=== PATIENT | female | born 2000 | race African-American/Black ===

== ENCOUNTER 2019-07-18 12:59 | Inpatient (IN) ==
[2019-07-18 14:06] LABS: Appearance Urine Clear (Clear); Bilirubin Urine Negative (Negative); Blood Urine Negative (Negative); Color Urine Dark Yellow; Epithelial Cell Urine Auto >30 /lpf (0-5); Glucose Urine UA Negative (Negative); Ketones Urine 2+ (Negative); Leukocyte Esterase Urine Negative (Negative); Nitrite Urine Negative (Negative); Protein Urine 3+ (Negative); Specific Gravity Urine 1.028 (1.000-1.030); Urobilinogen Urine Negative (Negative); pH Urine 5.5 (4.5-7.5)
[2019-07-18 14:44] LABS: Bacteria Urine Automated Negative (Negative); Cast Urine Automated 0 /lpf (0-5); Mucus Urine Present (None Prsent); RBC Urine Automated 0-4 /hpf (0-4)
[2019-07-18 14:47] LABS: Amphetamines+Metham, Urine Neg (Neg); Barbiturates, Urine Neg (Neg); Benzodiazepine, Urine Neg (Neg); Cocaine, Urine Neg (Neg); MDMA (Ecstacy), Urine Neg (Neg); Methadone, Urine Neg (Neg); Opiate, Urine Neg (Neg); Phencyclidine, Urine Neg (Neg)
[2019-07-18 15:09] LABS: Acetaminophen < 2 ug/ml (10-30); Albumin Globulin Ratio 0.9 (0.9-2); Albumin Level 3.6 gm/dl (3.4-5.0); BUN Creatinine Ratio 10.3 (10-20); Bilirubin,Total 0.5 mg/dl (0.2-1); Calcium 9.3 mg/dl (8.5-10.1); Creatinine Clr Calc Pharmacy 110.9 ml/min; Est GFR (African American) 128.8; Est GFR (Non-African American) 111.1; Globulin 4.1 gm/dl (2.5-4.0); Thyroid Stimulating Hormone 0.42 uIu/ml (0.300-4.500); Total Protein 7.7 gm/dl (6.4-8.2)
[2019-07-18 15:10] LABS: Salicylate < 1.7 mg/dl (2.8-20)
[2019-07-18 16:05] LABS: Basophils # (auto) 0.02 K/uL (0-0.2); Basophils % (auto) 0.3 %; Eosinophils # (auto) 0.07 K/uL (0-0.5); Eosinophils % (auto) 1.1 %; Hematocrit (blood only) 36.6 % (37-47); Hemoglobin 12.1 g/dL (12.0-16.0); Immature Granulocytes # (auto) 0.01 K/uL (0.00-0.02); Immature Granulocytes % (auto) 0.2 %; Lymphocytes # (auto) 1.79 K/uL (1.2-3.4); Lymphocytes % (auto) 28.7 %; Mean Corpuscular Hemoglobin 27.4 pg (25-34); Mean Corpuscular Hgb Conc 33.1 g/dL (32-36); Mean Corpuscular Volume 82.8 fL (80-100); Mean Platelet Volume 10.9 fL (7.4-10.4); Monocytes # (auto) 0.38 K/uL (0.11-0.59); Monocytes % (auto) 6.1 %; Neutrophils # (auto) 3.97 K/uL (1.4-6.5); Neutrophils % (auto) 63.6 %; Platelet Count 251 K/uL (130-400); RDW Coefficient of Variation 13.4 % (11.5-14.5); RDW Standard Deviation 40.7 fL (36.4-46.3); Red Blood Count 4.42 M/uL (4.2-5.4); White Blood Count 6.24 K/uL (4.8-10.8)
--- NOTE | 2019-07-18 16:18 | Emergency Department Note ---
Entered by Loreta Perae acting as a scribe for Elroy Bradley MD History of Present Illness General Chief complaint: Mental Health Evaluation Stated complaint: SUICIDAL THOUGHTS Time Seen by Provider: 07/18/19 13:22 Source: patient History of Present Illness Onset (ago): day(s) 4 Location: head Pain Consistency: + other (worsening) Quality: + other (mental health) Relieved By: not by other (coping skills) Associated symptoms: + denies other symptoms (recent self-harm, abdominal pain, leg swelling, HI, feeling anxious, having hallucinations) and + other (SI); no nausea/vomiting The patient is a 19 year old female w/ PMHx depression who presents to the ED for a mental health evaluation. The patient states that she has had depression since 8th grade. She states that over the last few weeks her depression has become worse. She states that 4 days ago she started having suicidal ideations. She reports that she has been having thoughts about overdosing on NyQuil or using scissors to kill herself. She notes that she has never tried committing suicide in the past, but she has harmed herself in the past. She notes that she last harmed herself 2 years ago. The patient states that yesterday she ended a friendship and states that she has been having boy problems. She states that she believes the stress from this plus the stress from school is why she is having these thoughts. The patient notes that she used to follow with a counselor, but no longer does. She notes that she did see [facility] today and they sent her here. She notes that she has been trying coping skills, but they are not working. She notes that her menstrual period is supposed to start tomorrow. The patient states that she was drinking, smoking marijuana, and doing LSD over the weekend. The patient denies being on any medications, ever being inpatient, using tobacco, having access to guns/weapons, abdominal pain, nausea, vomiting, leg swelling, HI, feeling anxious, and having hallucinations. Home Medications Home Medications Medication Instructions Recorded Confirmed Type No Known Home Medications 07/18/19 07/18/19 History Allergies Allergy/AdvReac Type Severity Reaction Status Date / Time No Known Allergies Allergy Unverified 07/18/19 14:35 Past Med/Surg History Medical History Depression Family History Other No significant family history Social History marital status: Single Current Living Situation: Other Current Living Situation Comment: Roommate current occupational status: student Feels Safe at Home: Yes Smoking Status: Never smoker Hx Alcohol Use: Yes Hx Substance Use: Yes Review of Systems See HPI for pertinent positives & negatives. and A total of 10 systems reviewed and were otherwise negative Physical Exam Vital Signs Vital Signs - 24 hr 07/18/19 13:12 Temperature 37.1 C Temperature Source Oral Sepsis Recent Fever Within 48 Hours No Sepsis New/Unexplained Change in Mental Status No Sepsis Action Taken by Nursing No Action Required Pulse Rate 61 Respiratory Rate 20 Blood Pressure 133/81 Blood Pressure Mean 98 Pulse Oximetry 97 Oxygen Delivery Method Room Air GENERAL: Well appearing, well nourished, NAD, non-toxic. Wearing glasses. EYE EXAM: Normal conjunctiva. PERRL, no anisocoria and EOM's grossly intact w/o pain. OROPHARYNX: Moist mucous membranes. Grossly normal dentition. NECK: Supple, no nuchal rigidity, no adenopathy, non-tender. No signs of meningismus. LUNGS: Clear to auscultation. Normal chest wall mechanics. HEART: NSR, no MRG. ABDOMEN: Abdomen soft, non-tender, normo-active bowel sounds, no masses, no rebound or guarding. BACK: No CVA TTP. SKIN: No rashes and no bruising. UPPER EXTREMITIES: Upper extremities are grossly normal. LOWER EXTREMITIES: No pitting edema. No calf pain. NEURO EXAM: A&O x3, cranial nerves II-XII grossly intact, normal speech, moves all 4 extremities on command w/o issue. PSYCH: Positive SI. Negative HI. Negative AVH. Course 1344: Past medical records reviewed. The patient was evaluated in room A5. A complete history and physical exam was performed. 1607: The patient was medically cleared at this time. 1725: The patient was accepted to [address] [place] [address] at this time. Medical Decision Making Differential Diagnosis Differential diagnoses considered include mood disorder, infection, hypoglycemia, electrolyte abnormalities, cardiac sources, intracerebral event, toxicologic, neurologic, as well as others. Medical Records Attestation: I reviewed the patient's medical records. Home Medications Current Medication List: was personally reviewed by me Laboratory Data Attestation: I reviewed the patient's lab results. Result diagrams: 07/18/19 15:35 07/18/19 14:22 Lab Results 07/18/19 07/18/19 07/18/19 Range/Units 13:45 13:45 14:22 WBC Cancelled RBC Cancelled Hgb Cancelled Hct Cancelled MCV Cancelled MCH Cancelled MCHC Cancelled RDW Std Deviation Cancelled RDW Coeff of Rafi Cancelled Plt Count Cancelled MPV Cancelled Immature Gran % (Auto) Cancelled Neut % (Auto) Cancelled Lymph % (Auto) Cancelled Montgomery % (Auto) Cancelled Eos % (Auto) Cancelled Baso % (Auto) Cancelled Immature Gran # (Auto) Cancelled Neut # (Auto) Cancelled Lymph # (Auto) Cancelled Montgomery # (Auto) Cancelled Eos # (Auto) Cancelled Baso # (Auto) Cancelled Absolute Nucleated RBC Cancelled Nucleated RBC % (auto) Cancelled Neutrophils % (Manual) Cancelled Band Neutrophils % Cancelled Lymphocytes % (Manual) Cancelled Prolymphocyte % Cancelled Reactive Lymphs % (Man) Cancelled Monocytes % (Manual) Cancelled Eosinophils % (Manual) Cancelled Basophils % (Manual) Cancelled Metamyelocytes % (Man) Cancelled Myelocytes % (Man) Cancelled Promyelocytes % (Man) Cancelled Blast Cells % (Manual) Cancelled Plasma Cell % (Manual) Cancelled Other Cells % Cancelled Nucleated RBC % Cancelled Neutrophils # (Manual) Cancelled Band Neutrophils # Cancelled Total Absolute Neuts Cancelled Lymphocytes # (Manual) Cancelled Prolymphocyte # Cancelled Reactive Lymphs # Cancelled Total Abs Lymphocytes Cancelled Monocytes # (Manual) Cancelled Eosinophils # (Manual) Cancelled Basophils # (Manual) Cancelled Metamyelocytes # (Man) Cancelled Myelocytes # (Manual) Cancelled Promyelocytes # (Man) Cancelled Blast Cells # (Man) Cancelled Plasma Cell # (Manual) Cancelled Other Cells # Cancelled Nucleated RBCs # (Man) Cancelled Hypersegmented Neuts Cancelled Hyposegmented Neuts Cancelled Hypogranular Neuts Cancelled Large Granular Lymphs Cancelled # Lrg Granular Lymphs Cancelled Hairy Cells Cancelled Smudge Cells Cancelled Toxic Granulation Cancelled Toxic Vacuolation Cancelled Dohle Bodies Cancelled Dafne Rods Cancelled Platelet Estimate Cancelled Hypogranular Platelets Cancelled Clumped Platelets Cancelled Giant Platelets Cancelled Platelet Satelliting Cancelled RBC Morphology Cancelled Polychromasia Cancelled Hypochromasia Cancelled Poikilocytosis Cancelled Basophilic Stippling Cancelled Anisocytosis Cancelled Microcytosis Cancelled Macrocytosis Cancelled Spherocytes Cancelled Pappenheimer Bodies Cancelled Sickle Cells Cancelled Target Cells Cancelled Tear Drop Cells Cancelled Ovalocytes Cancelled Stomatocytes Cancelled Maurer-Greenfield Bodies Cancelled Echinocytes Cancelled Acanthocytes (Spur) Cancelled Rouleaux Cancelled RBC Agglutinates Cancelled Schistocytes Cancelled RBC Morph Comment Cancelled Sezary Cell Cancelled Sodium (136-145) mmol/L Potassium (3.5-5.1) mmol/L Chloride (98-107) mmol/L Carbon Dioxide (21-32) mmol/L Anion Gap (3-11) BUN (7-18) mg/dl Creatinine (0.6-1.2) mg/dl Est Cr Clr Drug Dosing ml/min Est GFR ( Amer) Est GFR (Non-Af Amer) BUN/Creatinine Ratio (10-20) Glucose (70-99) mg/dl Calcium (8.5-10.1) mg/dl Total Bilirubin (0.2-1) mg/dl AST (15-37) U/L ALT (12-78) U/L Alkaline Phosphatase (45-117) U/L Total Protein (6.4-8.2) gm/dl Albumin (3.4-5.0) gm/dl Globulin (2.5-4.0) gm/dl Albumin/Globulin Ratio (0.9-2) TSH (0.300-4.500) uIu/ml Urine Color Dark Yellow Urine Appearance Clear (Clear) Urine pH 5.5 (4.5-7.5) Ur Specific Odell 1.028 (1.000-1.030) Urine Protein 3+ H (Negative) Urine Glucose (UA) Negative (Negative) Urine Ketones 2+ H (Negative) Urine Blood Negative (Negative) Urine Nitrite Negative (Negative) Urine Bilirubin Negative (Negative) Urine Urobilinogen Negative (Negative) Ur Leukocyte Esterase Negative (Negative) Urine WBC (Auto) 1-5 (0-5) /hpf Urine RBC (Auto) 0-4 (0-4) /hpf U Hyaline Cast (Auto) 0 (0-5) /lpf U Epithel Cells (Auto) >30 H (0-5) /lpf Urine Bacteria (Auto) Negative (Negative) Ur Renal Epithelial Cell Not Reportable Urine Mucus Present A (None Prsent) POC Ur Test (NEG) Salicylates (2.8-20) mg/dl Urine Opiates Screen Neg (Neg) Ur Methadone, Qual Neg (Neg) Acetaminophen (10-30) ug/ml Urine Barbiturates Neg (Neg) Ur Phencyclidine (PCP) Neg (Neg) U Amphetamin/Meth Scrn Neg (Neg) MDMA (Ecstasy) Screen Neg (Neg) U Benzodiazepines Scrn Neg (Neg) Ur Cocaine Metabolite Neg (Neg) U Marijuana (THC) Screen Pos H (Neg) Ethyl Alcohol mg/dL (0-3) mg/dl 07/18/19 07/18/19 07/18/19 Range/Units 14:22 14:22 14:22 WBC RBC Hgb Hct MCV MCH MCHC RDW Std Deviation RDW Coeff of Rafi Plt Count MPV Immature Gran % (Auto) Neut % (Auto) Lymph % (Auto) Montgomery % (Auto) Eos % (Auto) Baso % (Auto) Immature Gran # (Auto) Neut # (Auto) Lymph # (Auto) Montgomery # (Auto) Eos # (Auto) Baso # (Auto) Absolute Nucleated RBC Nucleated RBC % (auto) Neutrophils % (Manual) Band Neutrophils % Lymphocytes % (Manual) Prolymphocyte % Reactive Lymphs % (Man) Monocytes % (Manual) Eosinophils % (Manual) Basophils % (Manual) Metamyelocytes % (Man) Myelocytes % (Man) Promyelocytes % (Man) Blast Cells % (Manual) Plasma Cell % (Manual) Other Cells % Nucleated RBC % Neutrophils # (Manual) Band Neutrophils # Total Absolute Neuts Lymphocytes # (Manual) Prolymphocyte # Reactive Lymphs # Total Abs Lymphocytes Monocytes # (Manual) Eosinophils # (Manual) Basophils # (Manual) Metamyelocytes # (Man) Myelocytes # (Manual) Promyelocytes # (Man) Blast Cells # (Man) Plasma Cell # (Manual) Other Cells # Nucleated RBCs # (Man) Hypersegmented Neuts Hyposegmented Neuts Hypogranular Neuts Large Granular Lymphs # Lrg Granular Lymphs Hairy Cells Smudge Cells Toxic Granulation Toxic Vacuolation Dohle Bodies Dafne Rods Platelet Estimate Hypogranular Platelets Clumped Platelets Giant Platelets Platelet Satelliting RBC Morphology Polychromasia Hypochromasia Poikilocytosis Basophilic Stippling Anisocytosis Microcytosis Macrocytosis Spherocytes Pappenheimer Bodies Sickle Cells Target Cells Tear Drop Cells Ovalocytes Stomatocytes Maurer-Greenfield Bodies Echinocytes Acanthocytes (Spur) Rouleaux RBC Agglutinates Schistocytes RBC Morph Comment Sezary Cell Sodium 139 (136-145) mmol/L Potassium 4.0 (3.5-5.1) mmol/L Chloride 109 H (98-107) mmol/L Carbon Dioxide 23 (21-32) mmol/L Anion Gap 7.0 (3-11) BUN 8 (7-18) mg/dl Creatinine 0.77 (0.6-1.2) mg/dl Est Cr Clr Drug Dosing 110.9 ml/min Est GFR ( Amer) 128.8 Est GFR (Non-Af Amer) 111.1 BUN/Creatinine Ratio 10.3 (10-20) Glucose 81 (70-99) mg/dl Calcium 9.3 (8.5-10.1) mg/dl Total Bilirubin 0.5 (0.2-1) mg/dl AST 18 (15-37) U/L ALT 12 (12-78) U/L Alkaline Phosphatase 44 L (45-117) U/L Total Protein 7.7 (6.4-8.2) gm/dl Albumin 3.6 (3.4-5.0) gm/dl Globulin 4.1 H (2.5-4.0) gm/dl Albumin/Globulin Ratio 0.9 (0.9-2) TSH 0.420 (0.300-4.500) uIu/ml Urine Color Urine Appearance (Clear) Urine pH (4.5-7.5) Ur Specific Odell (1.000-1.030) Urine Protein (Negative) Urine Glucose (UA) (Negative) Urine Ketones (Negative) Urine Blood (Negative) Urine Nitrite (Negative) Urine Bilirubin (Negative) Urine Urobilinogen (Negative) Ur Leukocyte Esterase (Negative) Urine WBC (Auto) (0-5) /hpf Urine RBC (Auto) (0-4) /hpf U Hyaline Cast (Auto) (0-5) /lpf U Epithel Cells (Auto) (0-5) /lpf Urine Bacteria (Auto) (Negative) Ur Renal Epithelial Cell Urine Mucus (None Prsent) POC Ur Test (NEG) Salicylates < 1.7 L (2.8-20) mg/dl Urine Opiates Screen (Neg) Ur Methadone, Qual (Neg) Acetaminophen < 2 L (10-30) ug/ml Urine Barbiturates (Neg) Ur Phencyclidine (PCP) (Neg) U Amphetamin/Meth Scrn (Neg) MDMA (Ecstasy) Screen (Neg) U Benzodiazepines Scrn (Neg) Ur Cocaine Metabolite (Neg) U Marijuana (THC) Screen (Neg) Ethyl Alcohol mg/dL < 3.0 (0-3) mg/dl 07/18/19 07/18/19 Range/Units 15:35 15:43 WBC 6.24 RBC 4.42 Hgb 12.1 Hct 36.6 L MCV 82.8 MCH 27.4 MCHC 33.1 RDW Std Deviation 40.7 RDW Coeff of Rafi 13.4 Plt Count 251 MPV 10.9 H Immature Gran % (Auto) 0.2 Neut % (Auto) 63.6 Lymph % (Auto) 28.7 Montgomery % (Auto) 6.1 Eos % (Auto) 1.1 Baso % (Auto) 0.3 Immature Gran # (Auto) 0.01 Neut # (Auto) 3.97 Lymph # (Auto) 1.79 Montgomery # (Auto) 0.38 Eos # (Auto) 0.07 Baso # (Auto) 0.02 Absolute Nucleated RBC Nucleated RBC % (auto) Neutrophils % (Manual) Band Neutrophils % Lymphocytes % (Manual) Prolymphocyte % Reactive Lymphs % (Man) Monocytes % (Manual) Eosinophils % (Manual) Basophils % (Manual) Metamyelocytes % (Man) Myelocytes % (Man) Promyelocytes % (Man) Blast Cells % (Manual) Plasma Cell % (Manual) Other Cells % Nucleated RBC % Neutrophils # (Manual) Band Neutrophils # Total Absolute Neuts Lymphocytes # (Manual) Prolymphocyte # Reactive Lymphs # Total Abs Lymphocytes Monocytes # (Manual) Eosinophils # (Manual) Basophils # (Manual) Metamyelocytes # (Man) Myelocytes # (Manual) Promyelocytes # (Man) Blast Cells # (Man) Plasma Cell # (Manual) Other Cells # Nucleated RBCs # (Man) Hypersegmented Neuts Hyposegmented Neuts Hypogranular Neuts Large Granular Lymphs # Lrg Granular Lymphs Hairy Cells Smudge Cells Toxic Granulation Toxic Vacuolation Dohle Bodies Dafne Rods Platelet Estimate Hypogranular Platelets Clumped Platelets Giant Platelets Platelet Satelliting RBC Morphology Polychromasia Hypochromasia Poikilocytosis Basophilic Stippling Anisocytosis Microcytosis Macrocytosis Spherocytes Pappenheimer Bodies Sickle Cells Target Cells Tear Drop Cells Ovalocytes Stomatocytes Maurer-Greenfield Bodies Echinocytes Acanthocytes (Spur) Rouleaux RBC Agglutinates Schistocytes RBC Morph Comment Sezary Cell Sodium (136-145) mmol/L Potassium (3.5-5.1) mmol/L Chloride (98-107) mmol/L Carbon Dioxide (21-32) mmol/L Anion Gap (3-11) BUN (7-18) mg/dl Creatinine (0.6-1.2) mg/dl Est Cr Clr Drug Dosing ml/min Est GFR ( Amer) Est GFR (Non-Af Amer) BUN/Creatinine Ratio (10-20) Glucose (70-99) mg/dl Calcium (8.5-10.1) mg/dl Total Bilirubin (0.2-1) mg/dl AST (15-37) U/L ALT (12-78) U/L Alkaline Phosphatase (45-117) U/L Total Protein (6.4-8.2) gm/dl Albumin (3.4-5.0) gm/dl Globulin (2.5-4.0) gm/dl Albumin/Globulin Ratio (0.9-2) TSH (0.300-4.500) uIu/ml Urine Color Urine Appearance (Clear) Urine pH (4.5-7.5) Ur Specific Odell (1.000-1.030) Urine Protein (Negative) Urine Glucose (UA) (Negative) Urine Ketones (Negative) Urine Blood (Negative) Urine Nitrite (Negative) Urine Bilirubin (Negative) Urine Urobilinogen (Negative) Ur Leukocyte Esterase (Negative) Urine WBC (Auto) (0-5) /hpf Urine RBC (Auto) (0-4) /hpf U Hyaline Cast (Auto) (0-5) /lpf U Epithel Cells (Auto) (0-5) /lpf Urine Bacteria (Auto) (Negative) Ur Renal Epithelial Cell Urine Mucus (None Prsent) POC Ur Test NEG (NEG) Salicylates (2.8-20) mg/dl Urine Opiates Screen (Neg) Ur Methadone, Qual (Neg) Acetaminophen (10-30) ug/ml Urine Barbiturates (Neg) Ur Phencyclidine (PCP) (Neg) U Amphetamin/Meth Scrn (Neg) MDMA (Ecstasy) Screen (Neg) U Benzodiazepines Scrn (Neg) Ur Cocaine Metabolite (Neg) U Marijuana (THC) Screen (Neg) Ethyl Alcohol mg/dL (0-3) mg/dl Blood Pressure Blood Pressure Findings: Elevated blood pressure Blood Pressure Disposition: Referred to patients primary care provider MDM Narrative The patient is a 19 year old female w/ PMHx depression who presents to the ED for a mental health evaluation. Patient was seen and evaluated the bedside. The patient has had increasing depressive thoughts with suicidal ideation with plan. Patient denies any HI or AVH. Patient has tried to utilize coping skills and was seen and evaluated by Referred Here Today. The Patient Is Otherwise Well-Appearing at the Bedside. The Patient Did a Blood Work Completed. Patient Was Seen Medically Cleared Evaluated by Psych and Referred Upstairs. The Patient Was a Voluntary 201 and Admitted to 3 S. Impression & Plan Suicidal ideations, Depressed mood, Drug abuse Discharge Plan Visit Data Chief Complaint: Mental Health Evaluation Stated Complaint: SUICIDAL THOUGHTS ED Provider: Elroy Bradley Discharge Problem: Suicidal ideations, Depressed mood, Drug abuse Patient Disposition: Transfer Behavioral Health Fac Forms Stand Alone Forms: My [facility] Prescriptions Prescriptions: No Action No Known Home Medications RF: 0 Referrals Referrals: [place],[facility] [Primary Care Provider] - The curtisibe's documentation has been prepared under my direction and personally reviewed by me in its entirety. I confirm that the note above accurately reflects all work, treatment, procedures, and medical decision making performed by me.
[2019-07-18] MEDS ORDERED: ALUMINUM/MAGNESIUM SUSP 30 ML UDC PO PRN (16:58)
[2019-07-18] MEDS ORDERED: SODIUM CHLORIDE 0.65% NA SOLN 45 ML (OCEAN) PRN (16:58)
[2019-07-18] MEDS ORDERED: MAGNESIUM HYDROXIDE SUSP 30 ML UDC PO PRN (16:58)
[2019-07-18] MEDS ORDERED: BISMUTH SUBSALICYLATE PER ML OMNICELL CHARGE PO PRN (16:58)
[2019-07-18 19:30] VITALS: O2SAT 99
[2019-07-18] MEDS ORDERED: INFLUENZA VIRUS QUAD VACCINE 0.5 ML SYR IM ONE (21:45)
[2019-07-18] MEDS ORDERED: INFLUENZA ADMINISTRATION CHARGE ONE (21:45)
--- NOTE | 2019-07-19 10:55 | History & Physical ---
Date of Service July 19, 2019 Impression / Recommendations Impression 19-year-old female admitted voluntarily for inpatient psychiatric treatment after presenting to the ED upon referral from [facility]. Patient endorses worsening mood, more significantly over the past 2 weeks. Suicidal ideation has been persistent, and more severe than in the past. Suicidality developed into thoughts to harm herself with scissors or overdose on DayQuil. Patient verbalized concerns at [facility], and requested inpatient treatment. She was directed to the ED and subsequently admitted for treatment. Patient seems to demonstrate good insight and verbalizes having multiple outpatient supports. She indicates a desire for outpatient psychiatric providers, and states she is not able to contract for safety outside of the hospital due to persistent SI. Patient is agreeable to referral for a therapist locally, she is also agreeable to discussion about antidepressant medications. Overview of SSRIs was discussed with the patient, who verbalized concern related to possible weight gain. Risks, benefits, and potential side effects of fluoxetine were discussed with the patient, who verbalized understanding and is agreeable with plan to initiate the medication. Patient agreed to start fluoxetine 20 mg today, scheduled every morning thereafter. Will titrate as tolerated/indicated. Patient will be encouraged to participate in group and recreational programming while on the unit. She will be asked to involve outpatient supports in a family meeting to discuss safety and aftercare planning prior to discharge. At this time, patient remains at acute risk of harm to self as she continues to verbalize suicidal ideation and inability to contract for safety outside of the hospital. Inpatient psychiatric treatment is medically necessary at this time. Dr. Aisha Burton was directly involved in review and discussion of the patient's case and participated in medical decision making regarding treatment recommendations. (1) Suicidal ideations: 07/19 - Admitted to a locked inpatient behavioral health unit, on q15 minute safety checks - Encourage medication initiation/adjustments as indicated - Encourage participation in group and recreational therapies - Gather collateral information from outpatient providers - Suggest family meeting to involve outpatient supports in safety planning - Arrange appropriate aftercare (2) Depressed mood: 07/19 - Initiate fluoxetine 20mg qAM, starting first dose today - risks, benefits, and potential side effects were discussed and patient verbalized understanding - Encourage participation in group and recreational therapy - Suggest involvement of outpatient supports in a family meeting - Obtain collateral information from family and supports - Refer for outpatient psychiatric services (3) Substance use disorder: 07/19 - Pt admits to alcohol use to the point of intoxication 1-2 days per week; admits to intermittent but consistent use of cannabis as well as occasional use of LSD and mushrooms - Pt does not at this time feel that her substance use is negatively affecting her mood or ability to function/complete necessary daily tasks - She does not feel this topic is a primary focus of her treatment, though we will certainly continue to educate her and encourage sobriety - Brief intervention was offered and accepted Intervention was greater than 5 min in length. Brief interventions include: 1. Assess Readiness to Quit, 2. Advise: Help Patient to Reduce or Abstain from Alcohol and other substances, 3. Agree: Set Specific, Feasible Goals, 4. Assist: Anticipate barriers, Problem-Solving Solutions. Social work to 5. Arrange: Referrals to appropriate treatment. Summary of intervention: The patient is in precontemplation stage with regards to transtheoretical model of change. The patient is advised to decrease alcohol consumption and substance use due to depressant effects and risk of interactions with prescription medications. The patient was advised of recommendations for abstinence from alcohol and other abusable substances and to attend substance abuse treatment at discharge, and will be provided with recovery materials to continue to education self on how to cope with their condition without drinking or utilizing other substances. (4) Depression: (5) Anxiety: Inventory Assets Strengths: Willingness for treatment, multiple outpatient supports, good insight related to need for treatment Needs: Medication initiation to target depressive symptoms, development of healthy and effective coping strategies, referrals for outpatient psychiatric providers Risk Factors Assessment Male: No : No Do You Have Access To A Gun?: No Health Problems: No Mental Health Diagnoses: No (History has been "situational depression") Substance Use Disorders: Yes Previous Attempt: No Family History of Suicide: No Previous Psychiatric Hospitalization: No Smoker: No Protective Factors Assessment Voodoo Beliefs: Yes : No Responsible for Young Children: No Employed: Yes ([employer]) Stable Relationships: No Supportive Family: Yes Psychiatric History Identifying Data MIRZA MARIE is a 19-year-old F who currently lives in [place] with a roommate. Pt has limited prior psychiatric history, only reporting brief ep isodes of engagement in therapy. She was admitted on 07/18/19 16:59 on a 201 voluntary commitment for worsening depression and suicidal ideation with consideration to overdose on DayQuil or use scissors to harm herself. Information is gathered from the ED documentation and the patient herself, the combination of which is considered to be reliable. Chief Complaint "For the past 2 weeks I have been really depressed. I had a history of depression, so it was not shocking to me. But I got suicidal, and the urge and consistency of the thoughts just kept getting stronger." History of Present Illness 19-year-old -[place] female admitted voluntarily for inpatient psychiatric treatment after presenting to the ED upon referral from [facility]. Patient reported worsening mood over the last 2 weeks, accompanied by suicidal ideation with consideration to harm herself with scissors or overdose on DayQuil. Patient reportedly went to [facility] desiring inpatient psychiatric treatment. She was referred to the emergency room, and subsequently admitted to our unit for inpatient treatment. Attempt was made to safety plan from the ED, patient was unable to contract for safety outside of the inpatient setting due to continued suicidal ideation. Patient is cooperative with psychiatric evaluation, stating that she has been "decent", then admitting "for the past 2 weeks I have been really depressed." Patient states that suicidality began on 07/14/19, and worsened after the patient "went out Thursday night with a friend, she just left me. That friendship is now ended." Patient states that the suicidal ideation worsened over the course of the weekend, with the "urge and consistency becoming stronger." Patient shares with this provider "I told my friends however is feeling, I also told him if the thoughts did not go away by Thursday I was going to get help." Patient states this is exactly what happened, which is why she reached out to [facility] for assistance with inpatient psychiatric treatment. Patient reports recent stressors of ending of a friendship, "boy issues", and some academic st ress. Patient states that while her grades are decent overall, she is mildly struggling with "the last class I need to declare my major." Patient admits that while any of these stressors and isolation may not have contributed to suicidality, she is struggling with handling the combination of the stressors. Patient states that she has struggled with passive suicidality in the past, stating these thoughts were "'I want to ', but not with a solid plan." Patient believes last time she experienced passive suicidality was 2 years ago as a senior in high school. Patient admits that she is "confused" as "I have more friends and better family support now, but I feel like that is not helping to make me feel better faster." Patient does believe that she not sought out treatment, it may have been likely she would have acted on her suicidal ideation "by the end of the week." She denies intent to harm herself at this time, which is why she desired treatment. Patient endorses depressive symptoms of low mood, increased isolative behavior, increased desire to sleep to escape stress, difficulty falling and staying asleep, decreased appetite 10 pound semi-intentional weight loss, occasional thoughts of hopelessness, scattered thoughts, and suicidal ideation. Patient admits that in the past she had handled the symptoms with self-injurious behavior via cutting. She states she now resorts to "giving myself tattoos" when healthier coping strategies are less effective. Patient does admit to anxiety, which is most often situational in nature. She admits to tendency to isolate, and experiences physical symptoms of diaphoresis and tachycardia. Patient does admit to remote history of panic attacks, not able to recall when the last night had occurred. She does admit to crying spells, tremor, shortness of breath, negative thoughts, and this daughter when she is experiencing a panic attack. Patient admits to exacerbation of depressive and anxiety symptoms from 7th to 10th grade, as well as the end of her senior year of high school. She states she has never received medications for her mood or anxiety in the past. She has had intermittent counseling for specific situations. 1 of the situations includes restrictive eating behaviors which patient engaged in from seventh to ninth grade. Patient states that she continues to have thoughts to restrict, but has no desire to act on them. She states "to be honest I was not that great at it." Patient admits willingness for trial of antidepressant medications, and is requesting a referral for an outpatient therapist. Patient states she does not feel safe returning home at this time, as suicidal ideation is ongoing. Pt denies SI, HI, A/V hallucinations, paranoia, yessi/hypomania, other symptoms more suggestive of a bipolar presentation, OCD, PTSD, and other specific psychiatric symptoms. Past Psychiatric History Previous Psych History: Intermittent engagement in counseling, generally targeted towards a specific situational stressor. Current Psychiatric Diagnosis: MDD Outpatient Services: None presently Previous Psych Admissions: None Do You Have Access To A Gun?: No History of Previous Suicide Attempt: No Describe Attempts in the Past: Denies Past Medication Trials: Denies Past Head Trauma/Neuro History History of Concussion/Seizure: No Allergies Allergy/AdvReac Type Severity Reaction Status Date / Time No Known Allergies Allergy Unverified 07/18/19 14:35 Home Medications Home Medications Medication Instructions Recorded Confirmed Type No Known Home Medications 07/18/19 07/18/19 History Family History Family History of: Depression Family Mental Health History Comment: Mom Alcohol History Hx of Alcohol Use Over the Past 12 Months: Yes (Mostly on weekends to get drunk, approx 8 drinks) AUDIT Total Score: 14 Patient admits to consuming alcohol 1-2 days/week. At a maximum, patient states she consumes 8 alcoholic beverages, generally mixed drinks or shots. Patient does admit to intent to drink to the point of intoxication; however, does not routinely black out. Patient does not see her current alcohol use as an issue. Smoking Use Have You Smoked or Used Tobacco Products in the Last 30 Days: No Smoking Status: Never smoker Substance History Hx of Prescription Med Misuse Over the Past 12 Months: No Hx of Over the Counter Med Misuse Over the Past 12 Months: No Hx of Inhalent Misuse Over the Past 12 Months: No Hx of Organic Substance Use Over the Past 12 Months: Yes (Occasional marijuana) Hx of Illegal Substances/Street Drug Use Over Past 12 Months: Yes (Rarely uses LSD, last use over the weekend) Problems as a Result of Past Substance Use: None Identified Patient previously smoked marijuana on a daily basis. Has recently cut down to "3 times a week." Patient admits to use of LSD or mushrooms "1 or the other about every 3 months." Patient states she has not had any formal drug or alcohol abuse treatment. She does not perceive her current substance use as a concern. Personal History Living Arrangements: Dorm (With a roommate) Born In: [place] Childhood: Patient states she was born in [place] but moved frequently. She was raised by both parents. Patient has an older sister, who is currently living with her parents near [place], [place]. Patient states she has lived in [place], [place], [place], in [place]. She states they often traveled as her parents pursued various degrees and job opportunities. 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 ) Marital Status: Single Number Of Children: None Beliefs That Will Affect Care: Voodoo (Identifies as Caodaism) Current Legal Problems: No Hx Legal Problems: No Hx Traumatic Life Events: No Patient History Medical History Anxiety Depression Family History Mother Thyroid disease Other Breast cancer Diabetes Dyslipidemia Social History Preferred Language: Citizen Of [place] Communication Ability: Effective Cop Required: No Beliefs That Will Affect Care: None marital status: Single Current Living Situation: Other Current Living Situation Comment: Roommate current occupational status: student Feels Safe at Home: Yes Smoking Status: Never smoker Hx Alcohol Use: Yes Hx Substance Use: Yes Review of Systems Review of Systems: Constitutional: reports 10lb semi-intentional weight loss, admits to mildly reduced appetite Cardiovascular: denied Respiratory: denied Gastrointestinal: reports to increased episodes of indigestion Neurological: denied Psychiatric: denies symptoms other than stated above Total of at least 10 systems reviewed, pertinent positives as above and in HPI. Physical Exam Psychiatric: Orientation: alert, oriented x 3 and cooperative (And pleasant) Apperance: appropriately dressed, appropriately groomed and appeared stated age Obese appearing -Mac[place] female seated in no apparent distress. Patient is casually dressed in comfortable clothing, wearing a sweatshirt and jeans. She wears corrective lenses. Nicely manicured nails, hair neatly styled in dreadlocks. Level of hygiene and grooming appears adequate. Eye Contact: good eye contact Motor Behavior: steady gait and station and no abnormal motor movements (Occasionally fidgeting with nails or clothing) Speech: normal rate/rhythm/volume of speech Affect: + depressed affect (Mildly, brightening reluctantly but appropriately) and mood congruent with affect Mood: + depressed mood ("For the past 2 weeks I have been really depressed") and + anxious mood ("Sometimes I get anxious, it is usually situational") Thought Process: goal directed thought process, linear/logical thought process, clear/coherent thought process and thought association intact Thought Content: reality based without delusions; no hopelessness and no worthlessness Suicidal Thoughts: denies suicidal intent; + reports suicidal thoughts (Persistent suicidal ideation, patient confused about origin) and + reports suicidal plan (Verbalized consideration to overdose or harm with scissors) Homicidal Thoughts: denies homicidal thoughts Hallucinations: no auditory hallucinations and no visual hallucinations Cognition: recent memory grossly intact, remote memory grossly intact, attention grossly intact and language grossly intact Estimated Intelligence: consistent with education level Insight: good insight Judgement: good judgement Vital Signs (Past 24 Hours): Last Vital Signs Temp 36.6 C 07/19/19 06:00 Pulse 75 07/19/19 06:52 Resp 16 07/19/19 06:00 BP 132/75 07/19/19 06:52 Pulse Ox 99 07/18/19 19:07 Exam Statement: A physical exam was performed in the ER prior to admission to the unit by Dr. Elroy Bradley MD. I accept that physical as correct/medical clearance for the inpatient physical exam. Results & Data Laboratory Results Laboratory Results - last 24 hr 07/18/19 07/18/19 07/18/19 13:45 13:45 13:45 WBC RBC Hgb Hct MCV MCH MCHC RDW Std Deviation RDW Coeff of Rafi Plt Count MPV Immature Gran % (Auto) Neut % (Auto) Lymph % (Auto) Nobles % (Auto) Eos % (Auto) Baso % (Auto) Immature Gran # (Auto) Neut # (Auto) Lymph # (Auto) Nobles # (Auto) Eos # (Auto) Baso # (Auto) Absolute Nucleated RBC Nucleated RBC % (auto) Neutrophils % (Manual) Band Neutrophils % Lymphocytes % (Manual) Prolymphocyte % Reactive Lymphs % (Man) Monocytes % (Manual) Eosinophils % (Manual) Basophils % (Manual) Metamyelocytes % (Man) Myelocytes % (Man) Promyelocytes % (Man) Blast Cells % (Manual) Plasma Cell % (Manual) Other Cells % Nucleated RBC % Neutrophils # (Manual) Band Neutrophils # Total Absolute Neuts Lymphocytes # (Manual) Prolymphocyte # Reactive Lymphs # Total Abs Lymphocytes Monocytes # (Manual) Eosinophils # (Manual) Basophils # (Manual) Metamyelocytes # (Man) Myelocytes # (Manual) Promyelocytes # (Man) Blast Cells # (Man) Plasma Cell # (Manual) Other Cells # Nucleated RBCs # (Man) Hypersegmented Neuts Hyposegmented Neuts Hypogranular Neuts Large Granular Lymphs # Lrg Granular Lymphs Hairy Cells Smudge Cells Toxic Granulation Toxic Vacuolation Dohle Bodies Dafne Rods Platelet Estimate Hypogranular Platelets Clumped Platelets Giant Platelets Platelet Satelliting RBC Morphology Polychromasia Hypochromasia Poikilocytosis Basophilic Stippling Anisocytosis Microcytosis Macrocytosis Spherocytes Pappenheimer Bodies Sickle Cells Target Cells Tear Drop Cells Ovalocytes Stomatocytes Maurer-Hurlburt Field Bodies Echinocytes Acanthocytes (Spur) Rouleaux RBC Agglutinates Schistocytes RBC Morph Comment Sezary Cell Sodium Potassium Chloride Carbon Dioxide Anion Gap BUN Creatinine Est Cr Clr Drug Dosing Est GFR ( Amer) Est GFR (Non-Af Amer) BUN/Creatinine Ratio Glucose Calcium Total Bilirubin AST ALT Alkaline Phosphatase Total Protein Albumin Globulin Albumin/Globulin Ratio TSH Urine Color Dark Yellow Urine Appearance Clear Urine pH 5.5 Ur Specific [place] 1.028 Urine Protein 3+ H Urine Glucose (UA) Negative Urine Ketones 2+ H Urine Blood Negative Urine Nitrite Negative Urine Bilirubin Negative Urine Urobilinogen Negative Ur Leukocyte Esterase Negative Urine WBC (Auto) 1-5 Urine RBC (Auto) 0-4 U Hyaline Cast (Auto) 0 U Epithel Cells (Auto) >30 H Urine Bacteria (Auto) Negative Ur Renal Epithelial Cell Not Reportable Urine Mucus Present A POC Ur Test Salicylates Urine Opiates Screen Neg Ur Methadone, Qual Neg Acetaminophen Urine Barbiturates Neg Ur Phencyclidine (PCP) Neg U Amphetamin/Meth Scrn Neg MDMA (Ecstasy) Screen Neg U Benzodiazepines Scrn Neg Ur Cocaine Metabolite Neg U Marijuana (THC) Screen Pos H U Marijuana THC Carboxy Pending Ethyl Alcohol mg/dL 07/18/19 07/18/19 07/18/19 14:22 14:22 14:22 WBC Cancelled RBC Cancelled Hgb Cancelled Hct Cancelled MCV Cancelled MCH Cancelled MCHC Cancelled RDW Std Deviation Cancelled RDW Coeff of Rafi Cancelled Plt Count Cancelled MPV Cancelled Immature Gran % (Auto) Cancelled Neut % (Auto) Cancelled Lymph % (Auto) Cancelled Nobles % (Auto) Cancelled Eos % (Auto) Cancelled Baso % (Auto) Cancelled Immature Gran # (Auto) Cancelled Neut # (Auto) Cancelled Lymph # (Auto) Cancelled Nobles # (Auto) Cancelled Eos # (Auto) Cancelled Baso # (Auto) Cancelled Absolute Nucleated RBC Cancelled Nucleated RBC % (auto) Cancelled Neutrophils % (Manual) Cancelled Band Neutrophils % Cancelled Lymphocytes % (Manual) Cancelled Prolymphocyte % Cancelled Reactive Lymphs % (Man) Cancelled Monocytes % (Manual) Cancelled Eosinophils % (Manual) Cancelled Basophils % (Manual) Cancelled Metamyelocytes % (Man) Cancelled Myelocytes % (Man) Cancelled Promyelocytes % (Man) Cancelled Blast Cells % (Manual) Cancelled Plasma Cell % (Manual) Cancelled Other Cells % Cancelled Nucleated RBC % Cancelled Neutrophils # (Manual) Cancelled Band Neutrophils # Cancelled Total Absolute Neuts Cancelled Lymphocytes # (Manual) Cancelled Prolymphocyte # Cancelled Reactive Lymphs # Cancelled Total Abs Lymphocytes Cancelled Monocytes # (Manual) Cancelled Eosinophils # (Manual) Cancelled Basophils # (Manual) Cancelled Metamyelocytes # (Man) Cancelled Myelocytes # (Manual) Cancelled Promyelocytes # (Man) Cancelled Blast Cells # (Man) Cancelled Plasma Cell # (Manual) Cancelled Other Cells # Cancelled Nucleated RBCs # (Man) Cancelled Hypersegmented Neuts Cancelled Hyposegmented Neuts Cancelled Hypogranular Neuts Cancelled Large Granular Lymphs Cancelled # Lrg Granular Lymphs Cancelled Hairy Cells Cancelled Smudge Cells Cancelled Toxic Granulation Cancelled Toxic Vacuolation Cancelled Dohle Bodies Cancelled Dafne Rods Cancelled Platelet Estimate Cancelled Hypogranular Platelets Cancelled Clumped Platelets Cancelled Giant Platelets Cancelled Platelet Satelliting Cancelled RBC Morphology Cancelled Polychromasia Cancelled Hypochromasia Cancelled Poikilocytosis Cancelled Basophilic Stippling Cancelled Anisocytosis Cancelled Microcytosis Cancelled Macrocytosis Cancelled Spherocytes Cancelled Pappenheimer Bodies Cancelled Sickle Cells Cancelled Target Cells Cancelled Tear Drop Cells Cancelled Ovalocytes Cancelled Stomatocytes Cancelled Maurer-Hurlburt Field Bodies Cancelled Echinocytes Cancelled Acanthocytes (Spur) Cancelled Rouleaux Cancelled RBC Agglutinates Cancelled Schistocytes Cancelled RBC Morph Comment Cancelled Sezary Cell Cancelled Sodium 139 Potassium 4.0 Chloride 109 H Carbon Dioxide 23 Anion Gap 7.0 BUN 8 Creatinine 0.77 Est Cr Clr Drug Dosing 110.9 Est GFR ( Amer) 128.8 Est GFR (Non-Af Amer) 111.1 BUN/Creatinine Ratio 10.3 Glucose 81 Calcium 9.3 Total Bilirubin 0.5 AST 18 ALT 12 Alkaline Phosphatase 44 L Total Protein 7.7 Albumin 3.6 Globulin 4.1 H Albumin/Globulin Ratio 0.9 TSH 0.420 Urine Color Urine Appearance Urine pH Ur Specific [place] Urine Protein Urine Glucose (UA) Urine Ketones Urine Blood Urine Nitrite Urine Bilirubin Urine Urobilinogen Ur Leukocyte Esterase Urine WBC (Auto) Urine RBC (Auto) U Hyaline Cast (Auto) U Epithel Cells (Auto) Urine Bacteria (Auto) Ur Renal Epithelial Cell Urine Mucus POC Ur Test Salicylates < 1.7 L Urine Opiates Screen Ur Methadone, Qual Acetaminophen < 2 L Urine Barbiturates Ur Phencyclidine (PCP) U Amphetamin/Meth Scrn MDMA (Ecstasy) Screen U Benzodiazepines Scrn Ur Cocaine Metabolite U Marijuana (THC) Screen U Marijuana THC Carboxy Ethyl Alcohol mg/dL 07/18/19 07/18/19 07/18/19 14:22 15:35 15:43 WBC 6.24 RBC 4.42 Hgb 12.1 Hct 36.6 L MCV 82.8 MCH 27.4 MCHC 33.1 RDW Std Deviation 40.7 RDW Coeff of Rafi 13.4 Plt Count 251 MPV 10.9 H Immature Gran % (Auto) 0.2 Neut % (Auto) 63.6 Lymph % (Auto) 28.7 Nobles % (Auto) 6.1 Eos % (Auto) 1.1 Baso % (Auto) 0.3 Immature Gran # (Auto) 0.01 Neut # (Auto) 3.97 Lymph # (Auto) 1.79 Nobles # (Auto) 0.38 Eos # (Auto) 0.07 Baso # (Auto) 0.02 Absolute Nucleated RBC Nucleated RBC % (auto) Neutrophils % (Manual) Band Neutrophils % Lymphocytes % (Manual) Prolymphocyte % Reactive Lymphs % (Man) Monocytes % (Manual) Eosinophils % (Manual) Basophils % (Manual) Metamyelocytes % (Man) Myelocytes % (Man) Promyelocytes % (Man) Blast Cells % (Manual) Plasma Cell % (Manual) Other Cells % Nucleated RBC % Neutrophils # (Manual) Band Neutrophils # Total Absolute Neuts Lymphocytes # (Manual) Prolymphocyte # Reactive Lymphs # Total Abs Lymphocytes Monocytes # (Manual) Eosinophils # (Manual) Basophils # (Manual) Metamyelocytes # (Man) Myelocytes # (Manual) Promyelocytes # (Man) Blast Cells # (Man) Plasma Cell # (Manual) Other Cells # Nucleated RBCs # (Man) Hypersegmented Neuts Hyposegmented Neuts Hypogranular Neuts Large Granular Lymphs # Lrg Granular Lymphs Hairy Cells Smudge Cells Toxic Granulation Toxic Vacuolation Dohle Bodies Dafne Rods Platelet Estimate Hypogranular Platelets Clumped Platelets Giant Platelets Platelet Satelliting RBC Morphology Polychromasia Hypochromasia Poikilocytosis Basophilic Stippling Anisocytosis Microcytosis Macrocytosis Spherocytes Pappenheimer Bodies Sickle Cells Target Cells Tear Drop Cells Ovalocytes Stomatocytes Maurer-Hurlburt Field Bodies Echinocytes Acanthocytes (Spur) Rouleaux RBC Agglutinates Schistocytes RBC Morph Comment Sezary Cell Sodium Potassium Chloride Carbon Dioxide Anion Gap BUN Creatinine Est Cr Clr Drug Dosing Est GFR ( Amer) Est GFR (Non-Af Amer) BUN/Creatinine Ratio Glucose Calcium Total Bilirubin AST ALT Alkaline Phosphatase Total Protein Albumin Globulin Albumin/Globulin Ratio TSH Urine Color Urine Appearance Urine pH Ur Specific [place] Urine Protein Urine Glucose (UA) Urine Ketones Urine Blood Urine Nitrite Urine Bilirubin Urine Urobilinogen Ur Leukocyte Esterase Urine WBC (Auto) Urine RBC (Auto) U Hyaline Cast (Auto) U Epithel Cells (Auto) Urine Bacteria (Auto) Ur Renal Epithelial Cell Urine Mucus POC Ur Test NEG Salicylates Urine Opiates Screen Ur Methadone, Qual Acetaminophen Urine Barbiturates Ur Phencyclidine (PCP) U Amphetamin/Meth Scrn MDMA (Ecstasy) Screen U Benzodiazepines Scrn Ur Cocaine Metabolite U Marijuana (THC) Screen U Marijuana THC Carboxy Ethyl Alcohol mg/dL < 3.0 Current Inpatient Medications Current Inpatient Medications: Current Inpatient Medications Acetaminophen (Tylenol) 650 mg PO Q4H PRN PRN Reason: Headache or Minor Fever Stop: 08/17/19 16:57 Al Hydrox/Mg Hydrox/Simethicone (Maalox) 30 ml PO Q4H PRN PRN Reason: GI Upset Stop: 08/17/19 16:57 Bismuth Subsalicylate (Kaopectate) 15 ml PO PRN PRN PRN Reason: Loose Stool Stop: 08/17/19 16:57 Hydroxyzine HCl (Vistaril) 25 mg PO Q4H PRN PRN Reason: Anxiety Stop: 08/17/19 16:57 Hydroxyzine HCl (Vistaril) 50 mg PO HSZ PRN PRN Reason: Insomnia Stop: 08/17/19 16:57 Magnesium Hydroxide (Milk Of Magnesia) 30 ml PO DAILY PRN PRN Reason: Constipation Stop: 08/17/19 16:57 Sodium Chloride ([place] Nasal) 1 - 2 sprays NA PRN PRN PRN Reason: Nasal Dryness/Congestion Stop: 08/17/19 16:57
[2019-07-19] MEDS: FLUOXETINE HCL 20 MG CAP PO SCH (13:00)
[2019-07-20] MEDS: FLUOXETINE HCL 20 MG CAP PO SCH (08:53)
[2019-07-20] MEDS: ACETAMINOPHEN 325 MG TAB PO PRN ×2 (11:47→22:10)
--- NOTE | 2019-07-20 13:53 | Psychiatric Progress Note ---
Date of Service July 20, 2019 Impression / Recommendations Impression 19-year-old female admitted voluntarily for inpatient psychiatric treatment after presenting to the ED upon referral from [facility]. Patient endorses worsening mood, more significantly over the past 2 weeks. Suicidal ideation has been persistent, and more severe than in the past. Suicidality developed into thoughts to harm herself with scissors or overdose on DayQuil. Patient verbalized concerns at [facility], and requested inpatient treatment. She was directed to the ED and subsequently admitted for treatment. Patient seems to demonstrate good insight and verbalizes having multiple outpatient supports. She indicates a desire for outpatient psychiatric providers, and states she is not able to contract for safety outside of the hospital due to persistent SI. Patient is agreeable to referral for a therapist locally, she is also agreeable to discussion about antidepressant medications. Patient agreed to start fluoxetine 20 mg qAM with titration as tolerated/indicated. Patient will be encouraged to participate in group and recreational programming while on the unit. She will be asked to involve outpatient supports in a family meeting to discuss safety and aftercare planning prior to discharge. At this time, patient remains at acute risk of harm to self as she continues to verbalize suicidal ideation and inability to contract for safety outside of the hospital. Inpatient psychiatric treatment is medically necessary at this time. (1) Suicidal ideations: 07/19 - Admitted to a locked inpatient behavioral health unit, on q15 minute safety checks - Encourage medication initiation/adjustments as indicated - Encourage participation in group and recreational therapies - Gather collateral information from outpatient providers - Suggest family meeting to involve outpatient supports in safety planning - Arrange appropriate aftercare 07/20 - Pt denies SI today (2) Depressed mood: 07/19 - Initiate fluoxetine 20mg qAM, starting first dose today - risks, benefits, and potential side effects were discussed and patient verbalized understanding - Encourage participation in group and recreational therapy - Suggest involvement of outpatient supports in a family meeting - Obtain collateral information from family and supports - Refer for outpatient psychiatric services 07/20 - Continue fluoxetine 20mg daily, consider additional titration - Family meeting scheduled with parents and sister via phone tomorrow - Solidify outpatient providers (3) Substance use disorder: 07/19 - Pt admits to alcohol use to the point of intoxication 1-2 days per week; admits to intermittent but consistent use of cannabis as well as occasional use of LSD and mushrooms - Pt does not at this time feel that her substance use is negatively affecting her mood or ability to function/complete necessary daily tasks - She does not feel this topic is a primary focus of her treatment, though we will certainly continue to educate her and encourage sobriety - Brief intervention was offered and accepted Intervention was greater than 5 min in length. Brief interventions include: 1. Assess Readiness to Quit, 2. Advise: Help Patient to Reduce or Abstain from Alcohol and other substances, 3. Agree: Set Specific, Feasible Goals, 4. Assist: Anticipate barriers, Problem-Solving Solutions. Social work to 5. Arrange: Referrals to appropriate treatment. Summary of intervention: The patient is in precontemplation stage with regards to transtheoretical model of change. The patient is advised to decrease alcohol consumption and substance use due to depressant effects and risk of interactions with prescription medications. The patient was advised of recommendations for abstinence from alcohol and other abusable substances and to attend substance abuse treatment at discharge, and will be provided with recovery materials to continue to education self on how to cope with their condition without drinking or utilizing other substances. (4) Depression: (5) Anxiety: Inventory Assets Strengths: Willingness for treatment, multiple outpatient supports, good insight related to need for treatment Needs: Medication initiation to target depressive symptoms, development of healthy and effective coping strategies, referrals for outpatient psychiatric providers Risk Factors Assessment Male: No : No Do You Have Access To A Gun?: No Health Problems: No Mental Health Diagnoses: No (History has been "situational depression") Substance Use Disorders: Yes Previous Attempt: No Family History of Suicide: No Previous Psychiatric Hospitalization: No Smoker: No Protective Factors Assessment Mosque Beliefs: Yes : No Responsible for Young Children: No Employed: Yes ([employer]) Stable Relationships: No Supportive Family: Yes Interval History Identifying Information MIRZA MARIE is a 19-year-old F who currently lives in [place] with a roommate. Pt has limited prior psychiatric history, only reporting brief episodes of engagement in therapy. She was admitted on 07/18/19 16:59 on a 201 voluntary commitment for worsening depression and suicidal ideation with consideration to overdose on DayQuil or use scissors to harm herself. Chief Complaint "I feel better. Pretty good, actually." Review of Systems Notes Constitutional: denied Cardiovascular: denied Respiratory: denied Gastrointestinal: denied Neurological: denied Psychiatric: denies symptoms other than stated above Total of at least 10 systems reviewed, pertinent positives as above and in HPI. Sleep Information Total Hours of Sleep: 6 Sleep Comments: pt on q-15 minute checks Meal Information Percent Meal Consumed - Breakfast: 80 Percent Meal Consumed - Lunch: 90 Percent Meal Consumed - Dinner: 100 Subjective Subjective Patient was seen & assessed and interval progress reviewed with treatment team. Staff reports the patient has been cooperative in groups and supportive of peers. She had a positive visit with family last evening, rating her mood a 7- 10/10 after her visit. Pt was seen today to assess progress since her admission. Pt states she is "feeling better" and reporting her mood is "pretty good actually." She states she has been attending groups, reading books, and working through additional chapters of her patient handbook. She reports that her mood improved after she found out that her father has been offered a job, reportedly after 2 years of being unemployed. She states that she is somewhat nervous for her phone meeting with them tomorrow, as "I'm trying to balance the support they'll want to give and the support I think I actually need." Pt denies SI today and feels she is gaining skills to better manage her anxiety and depressive symptoms. Pt denies acute needs or concerns at this time. Physical Exam Psychiatric Orientation: alert, oriented x 3 and cooperative (and pleasant) Apperance: appropriately dressed, appropriately groomed and appeared stated age Eye Contact: good eye contact Motor Behavior: steady gait and station and no abnormal motor movements Speech: normal rate/rhythm/volume of speech Affect: euthymic affect and mood congruent with affect Mood: + depressed mood (mild, improving - "I'm feeling better") and + anxious mood (reports mild nervousness for family meeting tomorrow) Thought Process: goal directed thought process, linear/logical thought process, clear/coherent thought process and thought association intact Thought Content: reality based without delusions; no hopelessness Suicidal Thoughts: denies suicidal thoughts and denies suicidal intent Homicidal Thoughts: denies homicidal thoughts Hallucinations: no auditory hallucinations and no visual hallucinations Cognition: attention grossly intact and language grossly intact Insight: good insight Judgement: good judgement Vital Signs (Past 24 Hours) Last Vital Signs Temp 36.3 C L 07/20/19 06:57 Pulse 84 07/20/19 06:58 Resp 18 07/20/19 06:57 BP 116/77 07/20/19 06:58 Pulse Ox 99 10/21/19 19:07 Results & Data Current Inpatient Medications Current Inpatient Medications: Current Inpatient Medications Acetaminophen (Tylenol) 650 mg PO Q4H PRN PRN Reason: Headache or Minor Fever Stop: 08/17/19 16:57 Last Admin: 07/20/19 11:47 Dose: 650 mg Documented by: Al Hydrox/Mg Hydrox/Simethicone (Maalox) 30 ml PO Q4H PRN PRN Reason: GI Upset Stop: 08/17/19 16:57 Bismuth Subsalicylate (Kaopectate) 15 ml PO PRN PRN PRN Reason: Loose Stool Stop: 08/17/19 16:57 Fluoxetine HCl (Prozac) 20 mg PO QAM JAVIER Stop: 08/18/19 12:29 Last Admin: 07/20/19 08:53 Dose: 20 mg Documented by: Hydroxyzine HCl (Vistaril) 25 mg PO Q4H PRN PRN Reason: Anxiety Stop: 08/17/19 16:57 Hydroxyzine HCl (Vistaril) 50 mg PO HSZ PRN PRN Reason: Insomnia Stop: 08/17/19 16:57 Magnesium Hydroxide (Milk Of Magnesia) 30 ml PO DAILY PRN PRN Reason: Constipation Stop: 08/17/19 16:57 Sodium Chloride ([place] Nasal) 1 - 2 sprays NA PRN PRN PRN Reason: Nasal Dryness/Congestion Stop: 08/17/19 16:57 Mental Health & Subst Abuse Tx Therapist Name of Therapist: CHERYL
[2019-07-21] MEDS: FLUOXETINE HCL 20 MG CAP PO SCH (09:03)
--- NOTE | 2019-07-21 09:30 | Psychiatric Progress Note ---
Date of Service July 21, 2019 Impression / Recommendations Impression 19-year-old female admitted voluntarily for inpatient psychiatric treatment after presenting to the ED upon referral from [facility]. Patient endorses worsening mood, more significantly over the past 2 weeks. Suicidal ideation has been persistent, and more severe than in the past. Suicidality developed into thoughts to harm herself with scissors or overdose on DayQuil. Patient verbalized concerns at [facility], and requested inpatient treatment. She was directed to the ED and subsequently admitted for treatment. Patient seems to demonstrate good insight and verbalizes having multiple outpatient supports. She indicates a desire for outpatient psychiatric providers, and states she is not able to contract for safety outside of the hospital due to persistent SI. Patient is agreeable to referral for a therapist locally, she is also agreeable to discussion about antidepressant medications. Patient agreed to start fluoxetine 20 mg qAM, declining additional titration during this admission. Patient will be encouraged to participate in group and recreational programming while on the unit. She has agreed to involve her parents and sister in a family meeting via phone to discuss safety and aftercare planning prior to discharge. At this time, patient remains at acute risk of harm to self as she continues to verbalize suicidal ideation and inability to contract for safety outside of the hospital. Inpatient psychiatric treatment is medically necessary at this time. (1) Suicidal ideations: 07/19 - Admitted to a locked inpatient behavioral health unit, on q15 minute safety checks - Encourage medication initiation/adjustments as indicated - Encourage participation in group and recreational therapies - Gather collateral information from outpatient providers - Suggest family meeting to involve outpatient supports in safety planning - Arrange appropriate aftercare 07/20 - 07/21 - Pt denies SI today (2) Depressed mood: 07/19 - Initiate fluoxetine 20mg qAM, starting first dose today - risks, benefits, and potential side effects were discussed and patient verbalized understanding - Encourage participation in group and recreational therapy - Suggest involvement of outpatient supports in a family meeting - Obtain collateral information from family and supports - Refer for outpatient psychiatric services 07/20 - Continue fluoxetine 20mg daily, consider additional titration - Family meeting scheduled with parents and sister via phone tomorrow - Solidify outpatient providers 07/21 - Continue fluoxetine 20mg daily, patient declining further titration - Family meeting this afternoon via phone - Still requires aftercare appointments (3) Substance use disorder: 07/19 - Pt admits to alcohol use to the point of intoxication 1-2 days per week; admits to intermittent but consistent use of cannabis as well as occasional use of LSD and mushrooms - Pt does not at this time feel that her substance use is negatively affecting her mood or ability to function/complete necessary daily tasks - She does not feel this topic is a primary focus of her treatment, though we will certainly continue to educate her and encourage sobriety - Brief intervention was offered and accepted Intervention was greater than 5 min in length. Brief interventions include: 1. Assess Readiness to Quit, 2. Advise: Help Patient to Reduce or Abstain from Alcohol and other substances, 3. Agree: Set Specific, Feasible Goals, 4. Assist: Anticipate barriers, Problem-Solving Solutions. Social work to 5. Arrange: Referrals to appropriate treatment. Summary of intervention: The patient is in precontemplation stage with regards to transtheoretical model of change. The patient is advised to decrease alcohol consumption and substance use due to depressant effects and risk of interactions with prescription medications. The patient was advised of recommendations for abstinence from alcohol and other abusable substances and to attend substance abuse treatment at discharge, and will be provided with recovery materials to continue to education self on how to cope with their condition without drinking or utilizing other substances. (4) Depression: (5) Anxiety: Inventory Assets Strengths: Willingness for treatment, multiple outpatient supports, good insight related to need for treatment Needs: Medication initiation to target depressive symptoms, development of healthy and effective coping strategies, referrals for outpatient psychiatric providers Risk Factors Assessment Male: No : No Do You Have Access To A Gun?: No Health Problems: No Mental Health Diagnoses: No (History has been "situational depression") Substance Use Disorders: Yes Previous Attempt: No Family History of Suicide: No Previous Psychiatric Hospitalization: No Smoker: No Protective Factors Assessment Cheondoism Beliefs: Yes : No Responsible for Young Children: No Employed: Yes ([employer]) Stable Relationships: No Supportive Family: Yes Interval History Identifying Information MIRZA MARIE is a 19-year-old F who currently lives in [place] with a roommate. Pt has limited prior psychiatric history, only reporting brief episodes of engagement in therapy. She was admitted on 07/18/19 16:59 on a 201 voluntary commitment for worsening depression and suicidal ideation with consideration to overdose on DayQuil or use scissors to harm herself. Chief Complaint "Yeah, and not too worried about the meeting at all." Review of Systems Notes Constitutional: denied Cardiovascular: denied Respiratory: denied Gastrointestinal: denied Neurological: denied Psychiatric: denies symptoms other than stated above Total of at least 10 systems reviewed, pertinent positives as above and in HPI. Sleep Information Total Hours of Sleep: 6 Sleep Comments: pt on q-15 minute checks Meal Information Percent Meal Consumed - Breakfast: 80 Percent Meal Consumed - Lunch: 90 Percent Meal Consumed - Dinner: 90 Subjective Subjective Patient was seen & assessed and interval progress reviewed with treatment team. Staff reports the patient continues to be engaged in groups, supportive of peers. Patient is scheduled for a family meeting via phone with her parents and sister this afternoon. Patient was seen today to assess progress since admis alysha. She states that she is doing well, and continues to benefit from her admission. Patient states that she is "not worried at all" about her family meeting this afternoon. She states she has several suggestions in regards to ways her family can be supportive. This includes texting regularly, calling her if she has not spoken with them in a week, and working as a family to exercise and eat healthier when she is home on breaks. Patient feels that her family will be supportive of these suggestions and denies any anxiety about the meeting, as she states she communicates with her family regularly about how she is feeling. Patient states that she is not overly stressed about her workload for returning to school; however, verbalizes some concern about how to respond "socially" when people ask questions about her absence. Patient states that she has sought reimbursement counselor about this during groups, and has had multiple suggestions. She reports desire to "prioritize" people in her life who she feels comfortable sharing details with, and rehearsing general statements to offer to individuals she is not interested in having that information. Patient denies suicidal ideation since we talked yesterday. Patient was offered titration of fluoxetine, and the timeline of response to SSRIs was reviewed again. Patient states that she feels "more comfortable with taking it slow" and declines ti tration of fluoxetine at this time. Patient denies acute needs or concerns at this time, and is hoping to have her aftercare solidified in the next day or so. Physical Exam Psychiatric Orientation: alert, oriented x 3 and cooperative (And pleasant) Apperance: appropriately dressed (Casually, in T-shirt and leggings), appropriately groomed and appeared stated age Eye Contact: good eye contact Motor Behavior: steady gait and station and no abnormal motor movements Speech: normal rate/rhythm/volume of speech Affect: euthymic affect and mood congruent with affect Mood: no depressed mood ("Feeling better I think") Thought Process: goal directed thought process, linear/logical thought process, clear/coherent thought process and thought association intact Thought Content: reality based without delusions Suicidal Thoughts: denies suicidal thoughts and denies suicidal intent Homicidal Thoughts: denies homicidal thoughts Hallucinations: no auditory hallucinations and no visual hallucinations Cognition: attention grossly intact and language grossly intact Insight: good insight Judgement: good judgement Vital Signs (Past 24 Hours) Last Vital Signs Temp 36.8 C 07/21/19 06:55 Pulse 72 07/21/19 06:56 Resp 18 07/21/19 06:55 BP 116/77 07/21/19 06:56 Pulse Ox 99 07/18/19 19:07 Results & Data Current Inpatient Medications Current Inpatient Medications: Current Inpatient Medications Acetaminophen (Tylenol) 650 mg PO Q4H PRN PRN Reason: Headache or Minor Fever Stop: 08/17/19 16:57 Last Admin: 07/20/19 22:10 Dose: 650 mg Documented by: Al Hydrox/Mg Hydrox/Simethicone (Maalox) 30 ml PO Q4H PRN PRN Reason: GI Upset Stop: 08/17/19 16:57 Bismuth Subsalicylate (Kaopectate) 15 ml PO PRN PRN PRN Reason: Loose Stool Stop: 08/17/19 16:57 Fluoxetine HCl (Prozac) 20 mg PO QAM JAVIER Stop: 08/18/19 12:29 Last Admin: 07/21/19 09:03 Dose: 20 mg Documented by: Hydroxyzine HCl (Vistaril) 25 mg PO Q4H PRN PRN Reason: Anxiety Stop: 08/17/19 16:57 Hydroxyzine HCl (Vistaril) 50 mg PO HSZ PRN PRN Reason: Insomnia Stop: 08/17/19 16:57 Last Admin: 07/20/19 21:57 Dose: 50 mg Documented by: Magnesium Hydroxide (Milk Of Magnesia) 30 ml PO DAILY PRN PRN Reason: Constipation Stop: 08/17/19 16:57 Sodium Chloride ([place] Nasal) 1 - 2 sprays NA PRN PRN PRN Reason: Nasal Dryness/Congestion Stop: 08/17/19 16:57 Mental Health & Subst Abuse Tx Therapist Name of Therapist: CAPS
[2019-07-21] MEDS: ACETAMINOPHEN 325 MG TAB PO PRN (15:32)
[2019-07-22 06:49] VITALS: BP 88/66; TEMP 98.6
[2019-07-22] MEDS: FLUOXETINE HCL 20 MG CAP PO SCH (08:46)
[2019-07-22 11:46] VITALS: PULSE 75
--- NOTE | 2019-07-22 15:35 | Discharge Summary ---
Date of Service July 22, 2019 History of Present Illness 19-year-old -[place] female admitted voluntarily for inpatient psychiatric treatment after presenting to the ED upon referral from [facility]. Patient reported worsening mood over the last 2 weeks, accompanied by suicidal ideation with consideration to harm herself with scissors or overdose on DayQuil. Patient reportedly went to [facility] desiring inpatient psychiatric treatment. She was referred to the emergency room, and subsequently admitted to our unit for inpatient treatment. Attempt was made to safety plan from the ED, patient was unable to contract for safety outside of the inpatient setting due to continued suicidal ideation. Patient is cooperative with psychiatric evaluation, stating that she has been "decent", then admitting "for the past 2 weeks I have been really depressed." Patient states that suicidality began on 07/14/19, and worsened after the patient "went out Thursday night with a friend, she just left me. That friendship is now ended." Patient states that the suicidal ideation worsened over the course of the weekend, with the "urge and consistency becoming stronger." Patient shares with this provider "I told my friends however is feeling, I also told him if the thoughts did not go away by Thursday I was going to get help." Patient states this is exactly what happened, which is why she reached out to [facility] for assistance with inpatient psychiatric treatment. Patient reports recent stressors of ending of a friendship, "boy issues", and some academic stress. Patient states that while her grades are decent overall, she is mildly struggling with "the last class I need to declare my major." Patient admits t hat while any of these stressors and isolation may not have contributed to suicidality, she is struggling with handling the combination of the stressors. Patient states that she has struggled with passive suicidality in the past, stating these thoughts were "'I want to ', but not with a solid plan." Patient believes last time she experienced passive suicidality was 2 years ago as a senior in high school. Patient admits that she is "confused" as "I have more friends and better family support now, but I feel like that is not helping to make me feel better faster." Patient does believe that she not sought out treatment, it may have been likely she would have acted on her suicidal ideation "by the end of the week." She denies intent to harm herself at this time, which is why she desired treatment. Patient endorses depressive symptoms of low mood, increased isolative behavior, increased desire to sleep to escape stress, difficulty falling and staying asleep, decreased appetite 10 pound semi-intentional weight loss, occasional thoughts of hopelessness, scattered thoughts, and suicidal ideation. Patient admits that in the past she had handled the symptoms with self-injurious behavior via cutting. She states she now resorts to "giving myself tattoos" when healthier coping strategies are less effective. Patient does admit to anxiety, which is most often situational in nature. She admits to tendency to isolate, and experiences physical symptoms of diaphoresis and tachycardia. Patient does admit to remote history of panic attacks, not able to recall when the last night had occurred. She does admit to crying spells, tremor, shortness of breath, negative thoughts, and this daughter when she is experiencing a panic attack. Patient admits to exacerbation of depressive and anxiety symptoms from 7th to 10th grade, as well as the end of her senior year of high school. She states she has never received medications for her mood or anxiety in the past. She has had intermittent counseling for specific situations. 1 of the situations includes restrictive eating behaviors which patient engaged in from seventh to ninth grade. Patient states that she continues to have thoughts to restrict, but has no desire to act on them. She states "to be honest I was not that great at it." Patient admits willingness for trial of antidepressant medications, and is requesting a referral for an outpatient therapist. Patient states she does not feel safe returning home at this time, as suicidal ideation is ongoing. Pt denies SI, HI, A/V hallucinations, paranoia, yessi/hypomania, other symptoms more suggestive of a bipolar presentation, OCD, PTSD, and other specific psychiatric symptoms. Physical Exam Psychiatric Orientation: alert and oriented x 3 Apperance: appropriately dressed, appropriately groomed and appeared stated age Eye Contact: good eye contact Motor Behavior: steady gait and station and no abnormal motor movements Speech: normal rate/rhythm/volume of speech Affect: euthymic affect "MUCH better" Thought Process: goal directed thought process, linear/logical thought process and clear/coherent thought process Thought Content: reality based without delusions Suicidal Thoughts: denies suicidal thoughts Hallucinations: no auditory hallucinations Cognition: recent memory grossly intact, remote memory grossly intact, attention grossly intact and language grossly intact Estimated Intelligence: + above average estimated intelligence Insight: good insight Judgement: good judgement Vital Signs (Past 24 Hours) Last Vital Signs Temp 37 C 07/22/19 11:42 Pulse 75 07/22/19 11:42 Resp 18 07/22/19 11:42 BP 88/66 L 07/22/19 11:42 Pulse Ox 99 07/22/19 11:42 Principal Diagnosis Major depression Psychiatric Data Advance Directives Advance Directives Information Provided: Yes Advance Directives: No Mental Health Advance Directive: No Advance Directives on File: No Living Will: No Power of School Speech Therapist: No Advance Directives Reason:: Declines as Mental Health Visit. Risk Factors Assessment Male: No : No Do You Have Access To A Gun?: No Health Problems: No Mental Health Diagnoses: No (History has been "situational depression") Substance Use Disorders: Yes Previous Attempt: No Family History of Suicide: No Previous Psychiatric Hospitalization: No Smoker: No Protective Factors Assessment Jainism Beliefs: Yes : No Responsible for Young Children: No Employed: Yes ([employer]) Stable Relationships: No Supportive Family: Yes Tobacco Cessation at Discharge Tobacco Cessation Medication Prescribed at Discharge: Not Applicable/Non-Smoker Discharge Data Lab Results 07/18/19 07/18/19 07/18/19 13:45 13:45 13:45 WBC RBC Hgb Hct MCV MCH MCHC RDW Std Deviation RDW Coeff of Rafi Plt Count MPV Immature Gran % (Auto) Neut % (Auto) Lymph % (Auto) [place] % (Auto) Eos % (Auto) Baso % (Auto) Immature Gran # (Auto) Neut # (Auto) Lymph # (Auto) [place] # (Auto) Eos # (Auto) Baso # (Auto) Absolute Nucleated RBC Nucleated RBC % (auto) Neutrophils % (Manual) Band Neutrophils % Lymphocytes % (Manual) Prolymphocyte % Reactive Lymphs % (Man) Monocytes % (Manual) Eosinophils % (Manual) Basophils % (Manual) Metamyelocytes % (Man) Myelocytes % (Man) Promyelocytes % (Man) Blast Cells % (Manual) Plasma Cell % (Manual) Other Cells % Nucleated RBC % Neutrophils # (Manual) Band Neutrophils # Total Absolute Neuts Lymphocytes # (Manual) Prolymphocyte # Reactive Lymphs # Total Abs Lymphocytes Monocytes # (Manual) Eosinophils # (Manual) Basophils # (Manual) Metamyelocytes # (Man) Myelocytes # (Manual) Promyelocytes # (Man) Blast Cells # (Man) Plasma Cell # (Manual) Other Cells # Nucleated RBCs # (Man) Hypersegmented Neuts Hyposegmented Neuts Hypogranular Neuts Large Granular Lymphs # Lrg Granular Lymphs Hairy Cells Smudge Cells Toxic Granulation Toxic Vacuolation Dohle Bodies Dafne Rods Platelet Estimate Hypogranular Platelets Clumped Platelets Giant Platelets Platelet Satelliting RBC Morphology Polychromasia Hypochromasia Poikilocytosis Basophilic Stippling Anisocytosis Microcytosis Macrocytosis Spherocytes Pappenheimer Bodies Sickle Cells Target Cells Tear Drop Cells Ovalocytes Stomatocytes [place] Bodies Echinocytes Acanthocytes (Spur) Rouleaux RBC Agglutinates Schistocytes RBC Morph Comment Sezary Cell Sodium Potassium Chloride Carbon Dioxide Anion Gap BUN Creatinine Est Cr Clr Drug Dosing Est GFR ( Amer) Est GFR (Non-Af Amer) BUN/Creatinine Ratio Glucose Calcium Total Bilirubin AST ALT Alkaline Phosphatase Total Protein Albumin Globulin Albumin/Globulin Ratio TSH Urine Color Dark Yellow Urine Appearance Clear Urine pH 5.5 Ur Specific [place] 1.028 Urine Protein 3+ H Urine Glucose (UA) Negative Urine Ketones 2+ H Urine Blood Negative Urine Nitrite Negative Urine Bilirubin Negative Urine Urobilinogen Negative Ur Leukocyte Esterase Negative Urine WBC (Auto) 1-5 Urine RBC (Auto) 0-4 U Hyaline Cast (Auto) 0 U Epithel Cells (Auto) >30 H Urine Bacteria (Auto) Negative Ur Renal Epithelial Cell Not Reportable Urine Mucus Present A POC Ur Test Salicylates Urine Opiates Screen Neg Ur Methadone, Qual Neg Acetaminophen Urine Barbiturates Neg Ur Phencyclidine (PCP) Neg U Amphetamin/Meth Scrn Neg MDMA (Ecstasy) Screen Neg U Benzodiazepines Scrn Neg Ur Cocaine Metabolite Neg U Marijuana (THC) Screen Pos H U Marijuana THC Carboxy 240 A Ethyl Alcohol mg/dL 07/18/19 07/18/19 07/18/19 14:22 14:22 14:22 WBC Cancelled RBC Cancelled Hgb Cancelled Hct Cancelled MCV Cancelled MCH Cancelled MCHC Cancelled RDW Std Deviation Cancelled RDW Coeff of Rafi Cancelled Plt Count Cancelled MPV Cancelled Immature Gran % (Auto) Cancelled Neut % (Auto) Cancelled Lymph % (Auto) Cancelled [place] % (Auto) Cancelled Eos % (Auto) Cancelled Baso % (Auto) Cancelled Immature Gran # (Auto) Cancelled Neut # (Auto) Cancelled Lymph # (Auto) Cancelled [place] # (Auto) Cancelled Eos # (Auto) Cancelled Baso # (Auto) Cancelled Absolute Nucleated RBC Cancelled Nucleated RBC % (auto) Cancelled Neutrophils % (Manual) Cancelled Band Neutrophils % Cancelled Lymphocytes % (Manual) Cancelled Prolymphocyte % Cancelled Reactive Lymphs % (Man) Cancelled Monocytes % (Manual) Cancelled Eosinophils % (Manual) Cancelled Basophils % (Manual) Cancelled Metamyelocytes % (Man) Cancelled Myelocytes % (Man) Cancelled Promyelocytes % (Man) Cancelled Blast Cells % (Manual) Cancelled Plasma Cell % (Manual) Cancelled Other Cells % Cancelled Nucleated RBC % Cancelled Neutrophils # (Manual) Cancelled Band Neutrophils # Cancelled Total Absolute Neuts Cancelled Lymphocytes # (Manual) Cancelled Prolymphocyte # Cancelled Reactive Lymphs # Cancelled Total Abs Lymphocytes Cancelled Monocytes # (Manual) Cancelled Eosinophils # (Manual) Cancelled Basophils # (Manual) Cancelled Metamyelocytes # (Man) Cancelled Myelocytes # (Manual) Cancelled Promyelocytes # (Man) Cancelled Blast Cells # (Man) Cancelled Plasma Cell # (Manual) Cancelled Other Cells # Cancelled Nucleated RBCs # (Man) Cancelled Hypersegmented Neuts Cancelled Hyposegmented Neuts Cancelled Hypogranular Neuts Cancelled Large Granular Lymphs Cancelled # Lrg Granular Lymphs Cancelled Hairy Cells Cancelled Smudge Cells Cancelled Toxic Granulation Cancelled Toxic Vacuolation Cancelled Dohle Bodies Cancelled Dafne Rods Cancelled Platelet Estimate Cancelled Hypogranular Platelets Cancelled Clumped Platelets Cancelled Giant Platelets Cancelled Platelet Satelliting Cancelled RBC Morphology Cancelled Polychromasia Cancelled Hypochromasia Cancelled Poikilocytosis Cancelled Basophilic Stippling Cancelled Anisocytosis Cancelled Microcytosis Cancelled Macrocytosis Cancelled Spherocytes Cancelled Pappenheimer Bodies Cancelled Sickle Cells Cancelled Target Cells Cancelled Tear Drop Cells Cancelled Ovalocytes Cancelled Stomatocytes Cancelled [place] Bodies Cancelled Echinocytes Cancelled Acanthocytes (Spur) Cancelled Rouleaux Cancelled RBC Agglutinates Cancelled Schistocytes Cancelled RBC Morph Comment Cancelled Sezary Cell Cancelled Sodium 139 Potassium 4.0 Chloride 109 H Carbon Dioxide 23 Anion Gap 7.0 BUN 8 Creatinine 0.77 Est Cr Clr Drug Dosing 110.9 Est GFR ( Amer) 128.8 Est GFR (Non-Af Amer) 111.1 BUN/Creatinine Ratio 10.3 Glucose 81 Calcium 9.3 Total Bilirubin 0.5 AST 18 ALT 12 Alkaline Phosphatase 44 L Total Protein 7.7 Albumin 3.6 Globulin 4.1 H Albumin/Globulin Ratio 0.9 TSH 0.420 Urine Color Urine Appearance Urine pH Ur Specific [place] Urine Protein Urine Glucose (UA) Urine Ketones Urine Blood Urine Nitrite Urine Bilirubin Urine Urobilinogen Ur Leukocyte Esterase Urine WBC (Auto) Urine RBC (Auto) U Hyaline Cast (Auto) U Epithel Cells (Auto) Urine Bacteria (Auto) Ur Renal Epithelial Cell Urine Mucus POC Ur Test Salicylates < 1.7 L Urine Opiates Screen Ur Methadone, Qual Acetaminophen < 2 L Urine Barbiturates Ur Phencyclidine (PCP) U Amphetamin/Meth Scrn MDMA (Ecstasy) Screen U Benzodiazepines Scrn Ur Cocaine Metabolite U Marijuana (THC) Screen U Marijuana THC Carboxy Ethyl Alcohol mg/dL 07/18/19 07/18/19 07/18/19 14:22 15:35 15:43 WBC 6.24 RBC 4.42 Hgb 12.1 Hct 36.6 L MCV 82.8 MCH 27.4 MCHC 33.1 RDW Std Deviation 40.7 RDW Coeff of Rafi 13.4 Plt Count 251 MPV 10.9 H Immature Gran % (Auto) 0.2 Neut % (Auto) 63.6 Lymph % (Auto) 28.7 [place] % (Auto) 6.1 Eos % (Auto) 1.1 Baso % (Auto) 0.3 Immature Gran # (Auto) 0.01 Neut # (Auto) 3.97 Lymph # (Auto) 1.79 [place] # (Auto) 0.38 Eos # (Auto) 0.07 Baso # (Auto) 0.02 Absolute Nucleated RBC Nucleated RBC % (auto) Neutrophils % (Manual) Band Neutrophils % Lymphocytes % (Manual) Prolymphocyte % Reactive Lymphs % (Man) Monocytes % (Manual) Eosinophils % (Manual) Basophils % (Manual) Metamyelocytes % (Man) Myelocytes % (Man) Promyelocytes % (Man) Blast Cells % (Manual) Plasma Cell % (Manual) Other Cells % Nucleated RBC % Neutrophils # (Manual) Band Neutrophils # Total Absolute Neuts Lymphocytes # (Manual) Prolymphocyte # Reactive Lymphs # Total Abs Lymphocytes Monocytes # (Manual) Eosinophils # (Manual) Basophils # (Manual) Metamyelocytes # (Man) Myelocytes # (Manual) Promyelocytes # (Man) Blast Cells # (Man) Plasma Cell # (Manual) Other Cells # Nucleated RBCs # (Man) Hypersegmented Neuts Hyposegmented Neuts Hypogranular Neuts Large Granular Lymphs # Lrg Granular Lymphs Hairy Cells Smudge Cells Toxic Granulation Toxic Vacuolation Dohle Bodies Dafne Rods Platelet Estimate Hypogranular Platelets Clumped Platelets Giant Platelets Platelet Satelliting RBC Morphology Polychromasia Hypochromasia Poikilocytosis Basophilic Stippling Anisocytosis Microcytosis Macrocytosis Spherocytes Pappenheimer Bodies Sickle Cells Target Cells Tear Drop Cells Ovalocytes Stomatocytes [place] Bodies Echinocytes Acanthocytes (Spur) Rouleaux RBC Agglutinates Schistocytes RBC Morph Comment Sezary Cell Sodium Potassium Chloride Carbon Dioxide Anion Gap BUN Creatinine Est Cr Clr Drug Dosing Est GFR ( Amer) Est GFR (Non-Af Amer) BUN/Creatinine Ratio Glucose Calcium Total Bilirubin AST ALT Alkaline Phosphatase Total Protein Albumin Globulin Albumin/Globulin Ratio TSH Urine Color Urine Appearance Urine pH Ur Specific [place] Urine Protein Urine Glucose (UA) Urine Ketones Urine Blood Urine Nitrite Urine Bilirubin Urine Urobilinogen Ur Leukocyte Esterase Urine WBC (Auto) Urine RBC (Auto) U Hyaline Cast (Auto) U Epithel Cells (Auto) Urine Bacteria (Auto) Ur Renal Epithelial Cell Urine Mucus POC Ur Test NEG Salicylates Urine Opiates Screen Ur Methadone, Qual Acetaminophen Urine Barbiturates Ur Phencyclidine (PCP) U Amphetamin/Meth Scrn MDMA (Ecstasy) Screen U Benzodiazepines Scrn Ur Cocaine Metabolite U Marijuana (THC) Screen U Marijuana THC Carboxy Ethyl Alcohol mg/dL < 3.0 Hospital Course (1) Suicidal ideations: 07/19 - Admitted to a locked inpatient behavioral health unit, on q15 minute safety checks - Encourage medication initiation/adjustments as indicated - Encourage participation in group and recreational therapies - Gather collateral information from outpatient providers - Suggest family meeting to involve outpatient supports in safety planning - Arrange appropriate aftercare 07/20 - 07/21 - Pt denies SI today (2) Depressed mood: 07/19 - Initiate fluoxetine 20mg qAM, starting first dose today - risks, benefits, and potential side effects were discussed and patient verbalized understanding - Encourage participation in group and recreational therapy - Suggest involvement of outpatient supports in a family meeting - Obtain collateral information from family and supports - Refer for outpatient psychiatric services 07/20 - Continue fluoxetine 20mg daily, consider additional titration - Family meeting scheduled with parents and sister via phone tomorrow - Solidify outpatient providers 07/21 - Continue fluoxetine 20mg daily, patient declining further titration - Family meeting this afternoon via phone - Still requires aftercare appointments (3) Substance use disorder: 07/19 - Pt admits to alcohol use to the point of intoxication 1-2 days per week; admits to intermittent but consistent use of cannabis as well as occasional use of LSD and mushrooms - Pt does not at this time feel that her substance use is negatively affecting her mood or ability to function/complete necessary daily tasks - She does not feel this topic is a primary focus of her treatment, though we will certainly continue to educate her and encourage sobriety - Brief intervention was offered and accepted Intervention was greater than 5 min in length. Brief interventions include: 1. Assess Readiness to Quit, 2. Advise: Help Patient to Reduce or Abstain from Alcohol and other substances, 3. Agree: Set Specific, Feasible Goals, 4. Assist: Anticipate barriers, Problem-Solving Solutions. Social work to 5. Arrange: Referrals to appropriate treatment. Summary of intervention: The patient is in precontemplation stage with regards to transtheoretical model of change. The patient is advised to decrease alcohol consumption and substance use due to depressant effects and risk of interactions with prescription medications. The patient was advised of recommendations for abstinence from alcohol and other abusable substances and to attend substance abuse treatment at discharge, and will be provided with recovery materials to continue to education self on how to cope with their condition without drinking or utilizing other substances. (4) Depression: (5) Anxiety: Mental Health & Subst Abuse Tx Therapist Name of Therapist: Raul Wilkerson Therapist's Date of Therapist Appointment: 07/27/19 Time of Therapist Appointment: 10:30 a.m. Therapy Appointment Comment: [email or web address], [place] [address] Therapist Release of Information: Obtained, Reviewed and Signed Manager Regional Sales Name of Manager Regional Sales: [facility] - [place] Phone Number for Manager Regional Sales: [phone] Date of Appointment with Manager Regional Sales: 07/27/19 Time of Appointment with Manager Regional Sales: 1:30 p.m. Case Management Appointment Comment: [address] [place] [address] Post Discharge Appointments Primary Care Physician Name Of Family Doctor: [facility] - Manager Regional Sales, Heather Connolly Primary Care Date of Appointment with PCP: 07/27/19 Time of Appointment with PCP: 1:00 p.m. Provider Appointment Comment: [place], [place] Primary Care Release of Information: Obtained, Reviewed and Signed Smoking Cessation Counseling Tobacco Cessation Medication Prescribed at Discharge: Not Applicable/Non-Smoker Contact Information Discharge Discharge Address: [address] [place] [id number] Discharge Plan Discharge Items Patient Disposition: Home - Self-Care Reason For Visit: MDD Discharge Diagnosis: Major Depression Activity: Resume your previous activity Activity Comment: Resume classes on 07/25/19 Non-emergency contact: Primary Care Provider, Psychiatrist and Therapist Call non-emergency contact if: you have any medication questions and your symptoms worsen Follow-up/Referrals: [facility] [Primary Care Provider] - Diet: Regular Addtl Attending Provider Instructions: Access your safety plan. Use favored leisure activities to manage stress. Rely on friends (local and [id number]) as well as family (parents and sister) if suicidal thoughts return. Remember: It gets better. Pending Studies at Discharge: No Stand-Alone Forms: My [facility], Smoking Cessation, Suicide Prevention Resources Medications and DC Order Prescriptions: New fluoxetine 20 mg Capsule 20 mg PO QAM Qty: 30 RF: 0 hydroxyzine HCl 25 mg Tablet 50 mg PO HSZ PRN (Reason: sleep) Qty: 14 RF: 1 Discharge Orders: Discharge Order (Routine); Ordered 07/22/19 Ordered By: Fady Simon Admission Data Admit Date/Time: 07/18/19 16:59 Attending Provider: Aisha Burton Admit Provider: Aisha Burton Primary Care Provider: [facility] Other Interventions: Discharge Summary Assessment (RN) Last Done: 07/22/19 11:42 PSY Interdisciplinary Discharge Planning Last Done: 07/22/19 11:46 DC Date/Time DO NOT enter until pt leaves facility: 07/22/19 12:28 Coding Diagnoses Suicidal ideations R45.851 Depressed mood F32.9 Substance use disorder F19.90 Depression F32.9 Anxiety F41.9
--- NOTE | 2019-07-22 15:37 | Discharge Summary ---
Date of Service July 22, 2019 History of Present Illness 19-year-old female admitted voluntarily for inpatient psychiatric treatment after presenting to the ED upon referral from [facility]. Patient reported worsening mood over the last 2 weeks, accompanied by suicidal ideation with consideration to harm herself with scissors or overdose on DayQuil. Patient reportedly went to [facility] desiring inpatient psychiatric treatment. She was referred to the emergency room, and subsequently admitted to our unit for inpatient treatment. Attempt was made to safety plan from the ED, patient was unable to contract for safety outside of the inpatient setting due to continued suicidal ideation. Patient is cooperative with psychiatric evaluation, stating that she has been "decent", then admitting "for the past 2 weeks I have been really depressed." Patient states that suicidality began on 07/14/19, and worsened after the patient "went out Thursday night with a friend, she just left me. That friendship is now ended." Patient states that the suicidal ideation worsened over the course of the weekend, with the "urge and consistency becoming stronger." Patient shares with this provider "I told my friends however is feeling, I also told him if the thoughts did not go away by Thursday I was going to get help." Patient states this is exactly what happened, which is why she reached out to [facility] for assistance with inpatient psychiatric treatment. Patient reports recent stressors of ending of a friendship, "boy issues", and some academic stress. Patient states that while her grades are decent overall, she is mildly struggling with "the last class I need to declare my major." Patient admits that while any of these stressors and isolation may not have contributed to suicidality, she is struggling with handling the combination of the stressors. Patient states that she has struggled with passive suicidality in the past, stating these thoughts were "'I want to ', but not with a solid plan." Patient believes last time she experienced passive suicidality was 2 years ago as a senior in high school. Patient admits that she is "confused" as "I have more friends and better family support now, but I feel like that is not helping to make me feel better faster." Patient does believe that she not sought out treatment, it may have been likely she would have acted on her suicidal ideation "by the end of the week." She denies intent to harm herself at this time, which is why she desired treatment. Patient endorses depressive symptoms of low mood, increased isolative behavior, increased desire to sleep to escape stress, difficulty falling and staying asleep, decreased appetite 10 pound semi-intentional weight loss, occasional thoughts of hopelessness, scattered thoughts, and suicidal ideation. Patient admits that in the past she had handled the symptoms with self-injurious behavior via cutting. She states she now resorts to "giving myself tattoos" when healthier coping strategies are less effective. Patient does admit to anxiety, which is most often situational in nature. She admits to tendency to isolate, and experiences physical symptoms of diaphoresis and tachycardia. Patient does admit to remote history of panic attacks, not able to recall when the last night had occurred. She does admit to crying spells, tremor, shortness of breath, negative thoughts, and this daughter when she is experiencing a panic attack. Patient admits to exacerbation of depressive and anxiety symptoms from 7th to 10th grade, as well as the end of her senior year of high school. She states she has never received medications for her mood or anxiety in the past. She has had intermittent counseling for specific situations. 1 of the situations includes restrictive eating behaviors which patient engaged in from seventh to ninth grade. Patient states that she continues to have thoughts to restrict, but has no desire to act on them. She states "to be honest I was not that great at it." Patient admits willingness for trial of antidepressant medications, and is requesting a referral for an outpatient therapist. Patient states she does not feel safe returning home at this time, as suicidal ideation is ongoing. Pt denies SI, HI, A/V hallucinations, paranoia, yessi/hypomania, other symptoms more suggestive of a bipolar presentation, OCD, PTSD, and other specific psychiatric symptoms. Physical Exam Psychiatric Orientation: alert and oriented x 3 Apperance: appropriately dressed, appropriately groomed and appeared stated age Eye Contact: good eye contact Motor Behavior: steady gait and station and no abnormal motor movements Speech: normal rate/rhythm/volume of speech Affect: euthymic affect "MUCH better." Thought Process: goal directed thought process, linear/logical thought process and clear/coherent thought process Thought Content: reality based without delusions Suicidal Thoughts: denies suicidal thoughts Homicidal Thoughts: denies homicidal thoughts Hallucinations: no auditory hallucinations Cognition: recent memory grossly intact, remote memory grossly intact, attention grossly intact and language grossly intact Insight: + fair insight Judgement: + fair judgement Vital Signs (Past 24 Hours) Last Vital Signs Temp 37 C 07/22/19 11:42 Pulse 75 07/22/19 11:42 Resp 18 07/22/19 11:42 BP 88/66 L 07/22/19 11:42 Pulse Ox 99 07/22/19 11:42 Principal Diagnosis Major depression. Psychiatric Data During the course of hospitalization the patient was offered various modalities of psychiatric treatment and education. These included individual, group, and activity therapies. The patient has a close and supportive relationship with her parents, and a telephonic family session was also provided. In addition, she agreed to take the antidepressant medication fluoxetine at the dose of 20 mg a day, and reportedly tolerated this well. She was, however, somewhat resistant to recommendations regarding her use of alcohol and other drugs of abuse, and that she repeatedly asserted that she saw no evidence that it was adversely impacting upon her mood processes (despite the circumstances of her admission) and she also noted that she was not aware of any negative impact her use of chemical substances has had on on any sphere of endeavor, including social, legal, academic or familial. The patient also points out that her symptoms of depression have occurred independent of use of chemical substances and have been an issue, intermittently, for a number of years. She notes that her grades have been good, and while she is aware that the misuse of mood altering chemical substances can adversely affect wants treatment for depression, she says only that she is aware and will plan to moderate her use of present drugs such as alcohol. The patient indicates that she did not have any actual suicidal intent in association with thoughts of overdosing on medications. With time her mood brightened, and she expressed an eagerness to return to the community in order to continue her studies and resume contact with her friends. She describes a fairly extensive support system and says that she may have over stated her thoughts of suicide, within the context of seeking treatment for depression and situational distress. Day of Discharge Assessment On the day of discharge, the patient was found to be appropriately dressed and groomed. She was pleasant and fully cooperative with the discharge assessment. Her speech was delivered at a normal rate and volume, and her mood was described as being "much better." Her affect was bright. The patient's thought processes demonstrated tight associations, and there was no evidence of any delusional material and the patient's thought content. She also has no history of perceptual disturbances. She is continuing to report that she has no thoughts of suicide. The patient is also future oriented and talks at some length about her interest in psychiatry and pursuing a career in mental health. Patient also reflected, "I wonder if this episode will be useful to me professionally one day." She consistently reports no thoughts of causing physical harm to the person or property of others. She clearly above average in terms of her intelligence. We are concerned about her judgment and insight regarding the use of mood altering chemical substances. She does provide a clearly articulated rebuttal to our recommendations that she avail herself of chemical dependency treatment or self-help groups in the community. Specifically, she tells us that she does not believe that use of alcohol and other drugs has had any negative impact on any sphere of endeavor. She also indicates that she has been depressed independent of use of chemical substances. However, the patient agrees to continue to explore our concerns in this regard with her outpatient provider. She also expresses an understanding of the need to continue treatment for depression outside of the hospital. Transition of Care Transition Of Care Record: was reviewed with the patient Advance Directives Advance Directives Information Provided: Yes Advance Directives: No Mental Health Advance Directive: No Advance Directives on File: No Living Will: No Power of Vice President & General Manager [employer]: No Advance Directives Reason:: Declines as Mental Health Visit. Risk Factors Assessment History of uttering suicidal threats. History of recurrent depression. Chemical substance misuse. Mitigating factors include a fairly extensive support network. She has no history of any actual suicide attempts. She is clearly future oriented. Male: No : No Do You Have Access To A Gun?: No Health Problems: No Mental Health Diagnoses: No (History has been "situational depression") Substance Use Disorders: Yes Previous Attempt: No Family History of Suicide: No Previous Psychiatric Hospitalization: No Smoker: No Protective Factors Assessment Protestant Beliefs: Yes : No Responsible for Young Children: No Employed: Yes ([employer]) Stable Relationships: No Supportive Family: Yes Tobacco Cessation at Discharge Tobacco Cessation Medication Prescribed at Discharge: Not Applicable/Non-Smoker Total Time Total Time Spent: Greater Than 30 Minutes Total Time Includes: Examination of the patient, Discharge Planning, Medication Reconciliation and Communication with other providers Discharge Data Lab Results 07/18/19 07/18/19 07/18/19 13:45 13:45 13:45 WBC RBC Hgb Hct MCV MCH MCHC RDW Std Deviation RDW Coeff of Rafi Plt Count MPV Immature Gran % (Auto) Neut % (Auto) Lymph % (Auto) [place] % (Auto) Eos % (Auto) Baso % (Auto) Immature Gran # (Auto) Neut # (Auto) Lymph # (Auto) [place] # (Auto) Eos # (Auto) Baso # (Auto) Absolute Nucleated RBC Nucleated RBC % (auto) Neutrophils % (Manual) Band Neutrophils % Lymphocytes % (Manual) Prolymphocyte % Reactive Lymphs % (Man) Monocytes % (Manual) Eosinophils % (Manual) Basophils % (Manual) Metamyelocytes % (Man) Myelocytes % (Man) Promyelocytes % (Man) Blast Cells % (Manual) Plasma Cell % (Manual) Other Cells % Nucleated RBC % Neutrophils # (Manual) Band Neutrophils # Total Absolute Neuts Lymphocytes # (Manual) Prolymphocyte # Reactive Lymphs # Total Abs Lymphocytes Monocytes # (Manual) Eosinophils # (Manual) Basophils # (Manual) Metamyelocytes # (Man) Myelocytes # (Manual) Promyelocytes # (Man) Blast Cells # (Man) Plasma Cell # (Manual) Other Cells # Nucleated RBCs # (Man) Hypersegmented Neuts Hyposegmented Neuts Hypogranular Neuts Large Granular Lymphs # Lrg Granular Lymphs Hairy Cells Smudge Cells Toxic Granulation Toxic Vacuolation Dohle Bodies Dafne Rods Platelet Estimate Hypogranular Platelets Clumped Platelets Giant Platelets Platelet Satelliting RBC Morphology Polychromasia Hypochromasia Poikilocytosis Basophilic Stippling Anisocytosis Microcytosis Macrocytosis Spherocytes Pappenheimer Bodies Sickle Cells Target Cells Tear Drop Cells Ovalocytes Stomatocytes Maurer-Richgrove Bodies Echinocytes Acanthocytes (Spur) Rouleaux RBC Agglutinates Schistocytes RBC Morph Comment Sezary Cell Sodium Potassium Chloride Carbon Dioxide Anion Gap BUN Creatinine Est Cr Clr Drug Dosing Est GFR ( Amer) Est GFR (Non-Af Amer) BUN/Creatinine Ratio Glucose Calcium Total Bilirubin AST ALT Alkaline Phosphatase Total Protein Albumin Globulin Albumin/Globulin Ratio TSH Urine Color Dark Yellow Urine Appearance Clear Urine pH 5.5 Ur Specific [place] 1.028 Urine Protein 3+ H Urine Glucose (UA) Negative Urine Ketones 2+ H Urine Blood Negative Urine Nitrite Negative Urine Bilirubin Negative Urine Urobilinogen Negative Ur Leukocyte Esterase Negative Urine WBC (Auto) 1-5 Urine RBC (Auto) 0-4 U Hyaline Cast (Auto) 0 U Epithel Cells (Auto) >30 H Urine Bacteria (Auto) Negative Ur Renal Epithelial Cell Not Reportable Urine Mucus Present A POC Ur Test Salicylates Urine Opiates Screen Neg Ur Methadone, Qual Neg Acetaminophen Urine Barbiturates Neg Ur Phencyclidine (PCP) Neg U Amphetamin/Meth Scrn Neg MDMA (Ecstasy) Screen Neg U Benzodiazepines Scrn Neg Ur Cocaine Metabolite Neg U Marijuana (THC) Screen Pos H U Marijuana THC Carboxy 240 A Ethyl Alcohol mg/dL 07/18/19 07/18/19 07/18/19 14:22 14:22 14:22 WBC Cancelled RBC Cancelled Hgb Cancelled Hct Cancelled MCV Cancelled MCH Cancelled MCHC Cancelled RDW Std Deviation Cancelled RDW Coeff of Rafi Cancelled Plt Count Cancelled MPV Cancelled Immature Gran % (Auto) Cancelled Neut % (Auto) Cancelled Lymph % (Auto) Cancelled [place] % (Auto) Cancelled Eos % (Auto) Cancelled Baso % (Auto) Cancelled Immature Gran # (Auto) Cancelled Neut # (Auto) Cancelled Lymph # (Auto) Cancelled [place] # (Auto) Cancelled Eos # (Auto) Cancelled Baso # (Auto) Cancelled Absolute Nucleated RBC Cancelled Nucleated RBC % (auto) Cancelled Neutrophils % (Manual) Cancelled Band Neutrophils % Cancelled Lymphocytes % (Manual) Cancelled Prolymphocyte % Cancelled Reactive Lymphs % (Man) Cancelled Monocytes % (Manual) Cancelled Eosinophils % (Manual) Cancelled Basophils % (Manual) Cancelled Metamyelocytes % (Man) Cancelled Myelocytes % (Man) Cancelled Promyelocytes % (Man) Cancelled Blast Cells % (Manual) Cancelled Plasma Cell % (Manual) Cancelled Other Cells % Cancelled Nucleated RBC % Cancelled Neutrophils # (Manual) Cancelled Band Neutrophils # Cancelled Total Absolute Neuts Cancelled Lymphocytes # (Manual) Cancelled Prolymphocyte # Cancelled Reactive Lymphs # Cancelled Total Abs Lymphocytes Cancelled Monocytes # (Manual) Cancelled Eosinophils # (Manual) Cancelled Basophils # (Manual) Cancelled Metamyelocytes # (Man) Cancelled Myelocytes # (Manual) Cancelled Promyelocytes # (Man) Cancelled Blast Cells # (Man) Cancelled Plasma Cell # (Manual) Cancelled Other Cells # Cancelled Nucleated RBCs # (Man) Cancelled Hypersegmented Neuts Cancelled Hyposegmented Neuts Cancelled Hypogranular Neuts Cancelled Large Granular Lymphs Cancelled # Lrg Granular Lymphs Cancelled Hairy Cells Cancelled Smudge Cells Cancelled Toxic Granulation Cancelled Toxic Vacuolation Cancelled Dohle Bodies Cancelled Dafne Rods Cancelled Platelet Estimate Cancelled Hypogranular Platelets Cancelled Clumped Platelets Cancelled Giant Platelets Cancelled Platelet Satelliting Cancelled RBC Morphology Cancelled Polychromasia Cancelled Hypochromasia Cancelled Poikilocytosis Cancelled Basophilic Stippling Cancelled Anisocytosis Cancelled Microcytosis Cancelled Macrocytosis Cancelled Spherocytes Cancelled Pappenheimer Bodies Cancelled Sickle Cells Cancelled Target Cells Cancelled Tear Drop Cells Cancelled Ovalocytes Cancelled Stomatocytes Cancelled Maurer-[place] Bodies Cancelled Echinocytes Cancelled Acanthocytes (Spur) Cancelled Rouleaux Cancelled RBC Agglutinates Cancelled Schistocytes Cancelled RBC Morph Comment Cancelled Sezary Cell Cancelled Sodium 139 Potassium 4.0 Chloride 109 H Carbon Dioxide 23 Anion Gap 7.0 BUN 8 Creatinine 0.77 Est Cr Clr Drug Dosing 110.9 Est GFR ( Amer) 128.8 Est GFR (Non-Af Amer) 111.1 BUN/Creatinine Ratio 10.3 Glucose 81 Calcium 9.3 Total Bilirubin 0.5 AST 18 ALT 12 Alkaline Phosphatase 44 L Total Protein 7.7 Albumin 3.6 Globulin 4.1 H Albumin/Globulin Ratio 0.9 TSH 0.420 Urine Color Urine Appearance Urine pH Ur Specific [place] Urine Protein Urine Glucose (UA) Urine Ketones Urine Blood Urine Nitrite Urine Bilirubin Urine Urobilinogen Ur Leukocyte Esterase Urine WBC (Auto) Urine RBC (Auto) U Hyaline Cast (Auto) U Epithel Cells (Auto) Urine Bacteria (Auto) Ur Renal Epithelial Cell Urine Mucus POC Ur Test Salicylates < 1.7 L Urine Opiates Screen Ur Methadone, Qual Acetaminophen < 2 L Urine Barbiturates Ur Phencyclidine (PCP) U Amphetamin/Meth Scrn MDMA (Ecstasy) Screen U Benzodiazepines Scrn Ur Cocaine Metabolite U Marijuana (THC) Screen U Marijuana THC Carboxy Ethyl Alcohol mg/dL 07/18/19 07/18/19 07/18/19 14:22 15:35 15:43 WBC 6.24 RBC 4.42 Hgb 12.1 Hct 36.6 L MCV 82.8 MCH 27.4 MCHC 33.1 RDW Std Deviation 40.7 RDW Coeff of Rafi 13.4 Plt Count 251 MPV 10.9 H Immature Gran % (Auto) 0.2 Neut % (Auto) 63.6 Lymph % (Auto) 28.7 [place] % (Auto) 6.1 Eos % (Auto) 1.1 Baso % (Auto) 0.3 Immature Gran # (Auto) 0.01 Neut # (Auto) 3.97 Lymph # (Auto) 1.79 [place] # (Auto) 0.38 Eos # (Auto) 0.07 Baso # (Auto) 0.02 Absolute Nucleated RBC Nucleated RBC % (auto) Neutrophils % (Manual) Band Neutrophils % Lymphocytes % (Manual) Prolymphocyte % Reactive Lymphs % (Man) Monocytes % (Manual) Eosinophils % (Manual) Basophils % (Manual) Metamyelocytes % (Man) Myelocytes % (Man) Promyelocytes % (Man) Blast Cells % (Manual) Plasma Cell % (Manual) Other Cells % Nucleated RBC % Neutrophils # (Manual) Band Neutrophils # Total Absolute Neuts Lymphocytes # (Manual) Prolymphocyte # Reactive Lymphs # Total Abs Lymphocytes Monocytes # (Manual) Eosinophils # (Manual) Basophils # (Manual) Metamyelocytes # (Man) Myelocytes # (Manual) Promyelocytes # (Man) Blast Cells # (Man) Plasma Cell # (Manual) Other Cells # Nucleated RBCs # (Man) Hypersegmented Neuts Hyposegmented Neuts Hypogranular Neuts Large Granular Lymphs # Lrg Granular Lymphs Hairy Cells Smudge Cells Toxic Granulation Toxic Vacuolation Dohle Bodies Dafne Rods Platelet Estimate Hypogranular Platelets Clumped Platelets Giant Platelets Platelet Satelliting RBC Morphology Polychromasia Hypochromasia Poikilocytosis Basophilic Stippling Anisocytosis Microcytosis Macrocytosis Spherocytes Pappenheimer Bodies Sickle Cells Target Cells Tear Drop Cells Ovalocytes Stomatocytes Maurer-Richgrove Bodies Echinocytes Acanthocytes (Spur) Rouleaux RBC Agglutinates Schistocytes RBC Morph Comment Sezary Cell Sodium Potassium Chloride Carbon Dioxide Anion Gap BUN Creatinine Est Cr Clr Drug Dosing Est GFR ( Amer) Est GFR (Non-Af Amer) BUN/Creatinine Ratio Glucose Calcium Total Bilirubin AST ALT Alkaline Phosphatase Total Protein Albumin Globulin Albumin/Globulin Ratio TSH Urine Color Urine Appearance Urine pH Ur Specific [place] Urine Protein Urine Glucose (UA) Urine Ketones Urine Blood Urine Nitrite Urine Bilirubin Urine Urobilinogen Ur Leukocyte Esterase Urine WBC (Auto) Urine RBC (Auto) U Hyaline Cast (Auto) U Epithel Cells (Auto) Urine Bacteria (Auto) Ur Renal Epithelial Cell Urine Mucus POC Ur Test NEG Salicylates Urine Opiates Screen Ur Methadone, Qual Acetaminophen Urine Barbiturates Ur Phencyclidine (PCP) U Amphetamin/Meth Scrn MDMA (Ecstasy) Screen U Benzodiazepines Scrn Ur Cocaine Metabolite U Marijuana (THC) Screen U Marijuana THC Carboxy Ethyl Alcohol mg/dL < 3.0 Hospital Course (1) Suicidal ideations: 07/19 - Admitted to a locked inpatient behavioral health unit, on q15 minute safety checks - Encourage medication initiation/adjustments as indicated - Encourage participation in group and recreational therapies - Gather collateral information from outpatient providers - Suggest family meeting to involve outpatient supports in safety planning - Arrange appropriate aftercare 07/20 - 07/21 - Pt denies SI today 07/22 -The patient continues to report that she is having no thoughts of suicide. She also clarifies that she does not believe that she ever had any suicidal plan or intent but, instead, was concerned about the fact that she was having thoughts of suicide and, for that reason, reported them. The patient also was able to articulate a reasonable safety plan for the community. She notes that activities such as spending time with friends, watching movies, listening to music, and exercising have helped in the past. She agrees that she will contact a friend, her family, or present to the emergency room should suicidal thoughts with a plan/intent develop. She will also report any suicidal thoughts to her outpatient providers. (2) Depressed mood: 07/19 - Initiate fluoxetine 20mg qAM, starting first dose today - risks, benefits, and potential side effects were discussed and patient verbalized understanding - Encourage participation in group and recreational therapy - Suggest involvement of outpatient supports in a family meeting - Obtain collateral information from family and supports - Refer for outpatient psychiatric services 07/20 - Continue fluoxetine 20mg daily, consider additional titration - Family meeting scheduled with parents and sister via phone tomorrow - Solidify outpatient providers 10/24 - Continue fluoxetine 20mg daily, patient declining further titration - Family meeting this afternoon via phone - Still requires aftercare appointments 07/22 -Material risks and anticipated benefits of fluoxetine were again reviewed with the patient prior to discharge. She indicates that she feels that she is tolerating fluoxetine well and also understands that the dose of this medication may be titrated on an outpatient basis, as indicated. (3) Substance use disorder: 07/19 - Pt admits to alcohol use to the point of intoxication 1-2 days per week; admits to intermittent but consistent use of cannabis as well as occasional use of LSD and mushrooms - Pt does not at this time feel that her substance use is negatively affecting her mood or ability to function/complete necessary daily tasks - She does not feel this topic is a primary focus of her treatment, though we will certainly continue to educate her and encourage sobriety - Brief intervention was offered and accepted Intervention was greater than 5 min in length. Brief interventions include: 1. Assess Readiness to Quit, 2. Advise: Help Patie nt to Reduce or Abstain from Alcohol and other substances, 3. Agree: Set Specific, Feasible Goals, 4. Assist: Anticipate barriers, Problem-Solving Solutions. Social work to 5. Arrange: Referrals to appropriate treatment. Summary of intervention: The patient is in precontemplation stage with regards to transtheoretical model of change. The patient is advised to decrease alcohol consumption and substance use due to depressant effects and risk of interactions with prescription medications. The patient was advised of recommendations for abstinence from alcohol and other abusable substances and to attend substance abuse treatment at discharge, and will be provided with recovery materials to continue to education self on how to cope with their condition without drinking or utilizing other substances. (4) Depression: (5) Anxiety: Mental Health & Subst Abuse Tx Therapist Name of Therapist: [facility] Date of Therapist Appointment: 07/27/19 Time of Therapist Appointment: 10:30 a.m. Therapy Appointment Comment: [address], [place] [address] Therapist Release of Information: Obtained, Reviewed and Signed Program Technician Name of Program Technician: [employer] [facility] Cici Rodríguez Phone Number for Program Technician: [phone] Date of Appointment with Program Technician: 07/27/19 Time of Appointment with Program Technician: 1:30 p.m. Case Management Appointment Comment: [address] [place] [address] Post Discharge Appointments Primary Care Physician Name Of Family Doctor: [facility] - Program Technician, Heather [facility] Date of Appointment with PCP: 07/27/19 Time of Appointment with PCP: 1:00 p.m. Provider Appointment Comment: [place] [place] [facility] Release of Information: Obtained, Reviewed and Signed Smoking Cessation Counseling Tobacco Cessation Medication Prescribed at Discharge: Not Applicable/Non-Smoker Contact Information Discharge Discharge Address: [address] [place] [id number] Discharge Plan Discharge Items Patient Disposition: Home - Self-Care Reason For Visit: MDD Discharge Diagnosis: Major Depression Activity: Resume your previous activity Activity Comment: Resume classes on 07/25/19 Non-emergency contact: Primary Care Provider, Psychiatrist and Therapist Call non-emergency contact if: you have any medication questions and your symptoms worsen Follow-up/Referrals: [facility] [Primary Care Provider] - Diet: Regular Addtl Attending Provider Instructions: Access your safety plan. Use favored leisure activities to manage stress. Rely on friends (local and [id number]) as well as family (parents and sister) if suicidal thoughts return. Remember: It gets better. Pending Studies at Discharge: No Stand-Alone Forms: My [facility], Smoking Cessation, Suicide Prevention Resources Medications and DC Order Prescriptions: New fluoxetine 20 mg Capsule 20 mg PO QAM Qty: 30 RF: 0 hydroxyzine HCl 25 mg Tablet 50 mg PO HSZ PRN (Reason: sleep) Qty: 14 RF: 1 Discharge Orders: Discharge Order (Routine); Ordered 07/22/19 Ordered By: Fady Simon Admission Data Admit Date/Time: 07/18/19 16:59 Attending Provider: Aisha Burton Admit Provider: Aisha Burton Primary Care Provider: [facility] Other Interventions: Discharge Summary Assessment (RN) Last Done: 07/22/19 11:42 PSY Interdisciplinary Discharge Planning Last Done: 07/22/19 11:46 DC Date/Time DO NOT enter until pt leaves facility: 07/22/19 12:28 Coding Level of Care Code 38849 D/C day mgmt > 30 min Diagnoses Suicidal ideations R45.851 Depressed mood F32.9 Substance use disorder F19.90 Depression F32.9 Anxiety F41.9
== END 2019-07-22 12:28 | disposition home or self-care (01) | DRG 881 ==
LOC: ED 12:59 → 3S 16:59